=== PATIENT | female | born 1970 | race Caucasian/White ===

== ENCOUNTER 2019-09-23 07:50 | Outpatient (CLI) | payer OTHER, SELFPAY ==
--- NOTE | ~2019-09-23 | US_ITS ---
EXAMINATION: US right upper quadrant EXAM DATE: 09/23/2019 08:38 INDICATION: Abdominal pain. TECHNIQUE: Multiple grayscale and Doppler images of the abdomen right upper quadrant were obtained (jose alfredo y a technologist who performed the scan) and subsequently reviewed. There is no prior study for yduy ornelas. FINDINGS: The pancreatic head and body are normal in appearance. The pancreatic tail is not visualized. The l iver has normal echogenicity and contour. There are no focal liver lesions identified. There is no evidence of intrahepatic biliary duct dilation. Portal venous flow was seen in the hepatopedal, nor mal direction and has normal Doppler waveform. No right-sided hydronephrosis. Common bile duct measures 3 mm, which is normal. The gallbladder wall is normal in thickness, with ex pected amount of distention. No sonographic evidence of pericholecystic fluid. There is no cholelit hiases. Technologist performing exam reports patient did not demonstrate sonographic Ortiz's sign. Please note that this sign is less reliable in patients who have received pain medication. IMPRESSION: 1. Unremarkable abdominal ultrasound exam. Reviewed, dictated and finalized at location A. T END DEVELOPER DESIGNER
== END 2019-09-23 07:51 | disposition home or self-care (01) ==
PROVIDERS: PCP Internal Medicine; Visit Provider Internal Medicine
DX: R10.9 Unspecified abdominal pain (principal)
CPT/HCPCS: 76705

== ENCOUNTER 2019-09-30 07:59 | Outpatient (CLI) | payer OTHER, SELFPAY ==
--- NOTE | ~2019-09-30 | NM_ITS ---
EXAMINATION: NM hepatobiliary w pharm EXAM DATE: 09/30/2019 10:37 INDICATION: Right upper quadrant pain. TECHNIQUE: 5 mCi Tc-99m mebrofenin (Choletec) was administered intravenously. Scintigraphic images o f the abdomen were obtained for one hour. At the 1 hour time point, 1.4 mcg sincalide (Kinevac) was a dministered by slow intravenous infusion, and imaging was continued for 30 minutes. Gallbladder eject ion fraction was calculated by the technologist. There is no prior study for comparison. FINDINGS: There is normal clearance of radiotracer from the blood pool. There is homogeneous tracer u ptake by the liver. Activity progresses to the gallbladder and bowel. The gallbladder ejection fract ion (GBEF) is 50 % (most patients with gallbladder dysfunction have GBEF < 35%, but there is overlap with the normal range of 10-90%). IMPRESSION: Gallbladder ejection fraction 50%, within normal range. Reviewed, dictated and finalized at location B. COVERER
== END 2019-09-30 08:00 | disposition home or self-care (01) ==
PROVIDERS: PCP Internal Medicine; Visit Provider Internal Medicine
DX: R10.11 Right upper quadrant pain (principal)
CPT/HCPCS: 78227; A9537; J2805

== ENCOUNTER → 2020-05-12 13:36 | Outpatient (CLI) | payer OTHER, SELFPAY ==
--- NOTE | ~2020-05-12 | MM_ITS ---
EXAMINATION: MM screening [facility] BI w maria luz HISTORY: Screening mammogram TECHNIQUE: Craniocaudal and mediolateral oblique 3-D tomosynthesis images were obtained and synthetic 2-D images were generated. CAD analysis was submitted and interpreted. COMPARISON: 11/05/2018, 09/06/2017, 02/28/2016 bilateral digital screening mammogram examinations BREAST PARENCHYMAL COMPOSITION: There are scattered areas of fibroglandular density. FINDINGS: There is no evidence of suspicious mass, calcification, or architectural distortion to sugg est malignancy in either breast. There has been no suspicious interval change. IMPRESSION: 1. No mammographic evidence of malignancy. 2. Recommend routine screening mammography in one year. BI-RADS Category 1: Negative Reviewed, dictated and finalized at location A.
== END ==
DX: Z12.31 Encounter for screening mammogram for malignant neoplasm of breast (principal)
CPT/HCPCS: 77063; 77067

== ENCOUNTER 2021-03-31 10:38 | Emergency (ER) | payer OTHER, SELFPAY ==
[2021-03-31 11:03] VITALS: BP 128/67; PULSE 74; RESP 20; TEMP 37.7; O2SAT 98
--- NOTE | 2021-03-31 11:47 | ED.URI ---
HPI - URI/Sore Throat General Chief Complaint: Upper Respiratory Infection Stated Complaint: covid symptoms Time Seen by Provider: 03/31/21 11:11 Source: patient and RN notes reviewed Mode of arrival: ambulatory Limitations: no limitations History of Present Illness HPI Narrative: Patient presents today complaining of headache, sore throat, fatigue, chills and sweats x5 days. She found out this morning that her coworker was diagnosed with COVID-19. Patient has had the vaccine. Denies any nausea or vomiting, fever. She has tried no medication for symptoms prior to arrival. She also reports some dysuria at the end of her urine stream as well as some urgency for the past several days. She had a urine test done several days ago with a urine culture that showed GBS and was not subsequently treated as she is not . Patient is requesting another urine test. MD elicited complaint: sore throat Related Data Home Medications Medication Instructions Recorded Confirmed sertraline 100 mg PO DAILY 06/24/19 03/31/21 linaclotide [Linzess] 145 mcg PO DAILY 03/31/21 03/31/21 lorazepam 0.5 mg PO DAILY PRN 03/31/21 03/31/21 pravastatin 10 mg PO DAILY 03/31/21 03/31/21 Allergies Allergy/AdvReac Type Severity Reaction Status Date / Time erythromycin base AdvReac Intermediate Nausea Verified 03/31/21 10:47 Review of Systems Review of Systems: CONSTITUTIONAL: Denies body aches, fever. + Fatigue EYES: Denies visual changes, redness, or discharge. ENT: Denies rhinorrhea, congestion, or otalgia.+ Sore throat CARDIOVASCULAR: Denies chest pain, palpitations, or edema. RESPIRATORY: Denies cough or dyspnea. GASTROINTESTINAL: Denies abdominal pain, nausea, vomiting, or diarrhea. GENITOURINARY: Denies hematuria.+ Dysuria, urgency SKIN: Denies rash, itching, or wounds. MUSCULOSKELETAL: Denies back pain, joint pain, or myalgia. NEUROLOGIC: Denies numbness, tingling, or weakness.+ Headache PSYCH: Denies depression or anxiety. [facility] Past Medical History Medical History Anxiety Hyperlipidemia Social History Social History Smoking status: Never smoker Substance use: current Comments At time of signature, I have reviewed and agree with nursing past medical, surgical, social and family history unless otherwise noted. Please see nursing chart for further information. There is no relevant family history pertinent to the presenting complaint Exam Narrative: GENERAL: Well-appearing, well-nourished, and in no acute distress. HEAD: Normocephalic, atraumatic. EYES: EOMI. No redness or drainage. Conjunctivae normal. ENT: Mucous membranes pink and moist. Nares clear. No rhinorrhea. TMs normal bilaterally. Throat normal. Uvula midline. NECK: Normal AROM. Supple. No lymphadenopathy. CHEST: No respiratory distress. Clear to auscultation. HEART: Regular rate and rhythm. No murmur appreciated. Normal peripheral pulses. ABDOMEN: Soft, nontender, nondistended, normal active bowel sounds. MUSCULOSKELETAL: No bony tenderness. EXTREMITIES: Normal range of motion. No edema. SKIN: Warm, dry, no rash. Capillary refill normal. Normal skin turgor. NEURO: No focal deficits. Alert and oriented x3. Gait steady. PSYCH: Normal affect. No signs of depression or anxiety. Course Vital Signs Vital signs: Vital Signs Temperature 99.9 F H 03/31/21 11:03 Pulse Rate 74 03/31/21 11:03 Respiratory Rate 20 03/31/21 11:03 Blood Pressure 128/67 03/31/21 11:03 Pulse Oximetry 98 03/31/21 11:03 Temperature 99.9 F H 03/31/21 11:03 Pulse Rate 74 03/31/21 11:03 Respiratory Rate 20 03/31/21 11:03 Blood Pressure 128/67 03/31/21 11:03 Pulse Oximetry 98 03/31/21 11:03 Reviewed. Pt has been instructed to follow up with her PCP regarding her elevated blood pressure today. MDM - URI/Sore Throat Lab Data Attes
[2021-04-01 17:53] LABS: SARS-CoV-2 RNA PCR Negative
== END 2021-03-31 12:06 | disposition home or self-care (01) ==
PROVIDERS: Emergency Provider Nurse Practitioner
DX: J06.9 Acute upper respiratory infection, unspecified (principal); N30.01 Acute cystitis with hematuria; F41.9 Anxiety disorder, unspecified; E78.5 Hyperlipidemia, unspecified
CPT/HCPCS: 81003; 87077; 87081; 87086; 87088; 87426; 87880; 99213; C9803; G0463; U0003; U0005

== ENCOUNTER → 2022-01-24 12:13 | Outpatient (CLI) | payer OTHER, SELFPAY ==
--- NOTE | ~2022-01-24 | MM_ITS ---
EXAMINATION: MM screening [facility] BI w maria luz HISTORY: Screening mammogram TECHNIQUE: Craniocaudal and mediolateral oblique 3-D tomosynthesis images were obtained and synthetic 2-D images were generated. CAD analysis was submitted and interpreted. COMPARISON: 05/12/2020, 11/05/2018, 08/27/2017 BREAST PARENCHYMAL COMPOSITION: There are scattered areas of fibroglandular density. FINDINGS: There is no suspicious mass, calcification, or architectural distortion to suggest malignan cy in either breast. There has been no suspicious interval change. IMPRESSION: 1. No mammographic evidence of malignancy. 2. Recommend routine screening mammography in one year. BI-RADS Category 1: Negative Reviewed, dictated and finalized at location A.
== END ==
DX: Z12.31 Encounter for screening mammogram for malignant neoplasm of breast (principal)
CPT/HCPCS: 77063; 77067

== ENCOUNTER → 2022-06-01 13:52 | Outpatient (CLI) | payer OTHER, SELFPAY ==
--- NOTE | ~2022-06-01 | US_ITS ---
EXAMINATION: US pelvic complete w TV DATE: 06/01/2022 14:23 INDICATION: Ovarian cyst. TECHNIQUE: Multiple transabdominal and transvaginal sonographic images of the pelvis were obtained. COMPARISON: CT abdomen and pelvis 02/03/07 FINDINGS: TRANSABDOMINAL ULTRASOUND: The uterus measures 7.3 x 3.6 x 3.8 cm. There is no free fluid in the pelvis. TRANSVAGINAL ULTRASOUND: The endometrial complex measures 3 mm in thickness. There is a 9 mm intramural fibroid. The right ova ry measures 1.6 x 1.4 x 1.4 cm. The left ovary measures 2.7 x 1.5 x 2.1 cm. There is a 2.4 cm cyst in left ovary with peripheral hypoechoic material. There is normal vascular flow in the ovaries. IMPRESSION: 1. 2.4 cm cystic mass in left ovary, most likely a hemorrhagic cyst or endometrioma. Follow-up pelvis ultrasound is recommended in 6-12 weeks. 2. Small intramural fibroid. Reviewed, dictated and finalized at location A. IMPRESSION: 1. 2.4 cm cystic mass in left ovary, most likely a hemorrhagic cyst or endometr ioma. Follow-up pelvis ultrasound is recommended in 6-12 weeks. 2. Small intramural fibroid.
== END ==
DX: N95.9 Unspecified menopausal and perimenopausal disorder (principal); N83.202 Unspecified ovarian cyst, left side; D25.1 Intramural leiomyoma of uterus
CPT/HCPCS: 76830; 76856

== ENCOUNTER → 2022-07-27 12:32 | Outpatient (CLI) | payer OTHER, SELFPAY ==
--- NOTE | ~2022-07-27 | DEXA_ITS ---
Bone Density Report Name: GUS SHARMA Age: 51 Sex: Female Ethnicity: White Date of : 1970 Indication: postmenopausal; screening for osteoporosis; Referring Provider: BETTY, ROB Stringer Study: Bone densitometry was performed. Exam Date: July 27, 2022 Accession number: [id number] Bone Density: Region BMD T-score Z-score Classification AP Spine (L1-L4) 1.176 1.2 2.0 Normal Femoral Neck (Left) 0.814 -0.3 0.5 Normal Total Hip (Left) 0.948 0.1 0.6 Normal Femoral Neck (Right) 0.848 0.0 0.9 Normal Total Hip (Right) 0.938 0.0 0.5 Normal Total Hip Mean 0.943 0.1 0.6 Normal World Health Organization criteria for BMD impression classify patients as: Normal (T-score at or above -1.0), Osteopenia (T-score between -1.0 and -2.5), or Osteoporosis (T-score at or below -2.5). 10-year Fracture Risk: FRAX not reported because: All T-scores for Spine Total, Hip Total, Femoral Neck at or above -1.0 Clinical Information Provided by Patient: Patient maximum height was 67 Menopause Age: 49 Drinks caffeinated beverages Onset of menses at age 13 Number of children 3 Impression: The patient has normal bone mass. Discussion: BONE DENSITY IS ABOVE THE MINIMUM DESIRABLE LEVEL AT ALL SKELETAL SITES TESTED. This patient?s bone mineral density is above the minimum desirable level (T-score -1.0 or better) at all sites measured. The patient should follow a healthful lifestyle (good nutrition with adequate calcium and vitamin D, and appropriate weight-bearing exercise). Follow-Up: Consider repeating this study in 5 years or sooner if there is some new clinical indication. Reported by: [facility] on 07/27/2022 12:57:00 PM. Reviewed, dictated and finalized at location [facility]
== END ==
PROVIDERS: Visit Provider Internal Medicine Endocrinology, Diabetes & Metabolism
DX: Z78.0 Asymptomatic menopausal state (principal)
CPT/HCPCS: 77080

== ENCOUNTER → 2023-10-11 08:18 | Outpatient (CLI) | payer OTHER, SELFPAY ==
--- NOTE | ~2023-10-11 | XR_ITS ---
XR abdomen/kub 1V 10/11/2023 08:34 Indication: Microscopic hematuria Procedure: KUB Comparison: 02/03/2007 Findings: There are bilateral pelvic calcifications which are most likely phleboliths, although dista l ureteral stone not excluded. Bowel pattern nonobstructive. No definite stones are identified overly ing the expected course of the kidneys. Lung bases unremarkable. No acute osseous abnormality. Impression: 1: Possible distal ureteral stone. Consider correlation with CT urogram as clinically warranted. Reviewed, dictated and finalized at location A. OMER ACCOUNT ADMINISTRATOR Impression: 1: Possible distal ureteral stone. Consider correlation with CT urogram as clin ically warranted.
--- NOTE | ~2023-10-11 | CT_ITS ---
CT of the Abdomen and Pelvis: Indication: Microscopic hematuria Technique: 2.5 mm axial scans were obtained through the abdomen and pelvis prior to and following in travenous administration of 130 cc of Omnipaque 350. Dose reduction technique was used on this scan b y utilizing automated exposure control and iterative reconstruction technique. The dose-length produc t (DLP) was 1122.42 mGy-cm. Findings: Scans through the lung bases are unremarkable. The liver, spleen, pancreas, gallbladder, adrenals and kidneys are within normal limits. No evidence of aortic aneurysm. No lymphadenopathy. No bowel obstruction or bowel wall thickening. There is no evidence to suggest acute appendicitis. Images through the pelvis were performed. Urinary bladder unremarkable. No adnexal mass seen. No asci lida. Impression: No significant abnormalities seen. Reviewed, dictated and finalized at [facility]. LING MACHINE OPERATOR Impression: No significant abnormalities seen.
== END ==
PROVIDERS: PCP Urology; Visit Provider Urology
DX: R31.29 Other microscopic hematuria (principal)
CPT/HCPCS: 74018; 74178; Q9967

== ENCOUNTER 2023-10-30 11:57 | Outpatient (CLI) | payer OTHER, SELFPAY ==
--- NOTE | ~2023-10-30 | US_ITS ---
EXAMINATION: US thyroid DATE: 10/30/2023 12:13 INDICATION: Tam's thyroiditis TECHNIQUE: Multiple ultrasound images of the thyroid were obtained. COMPARISON: None. FINDINGS: The right thyroid lobe measures 5.5 x 2.4 x 1.5 cm. The left thyroid lobe measures 4.6 x 2.2 x 1.8 c m. No discrete nodules identified. Diffuse heterogeneous echogenicity with coarsened echotexture and increased vascular flow on color Doppler throughout the thyroid consistent with provided history of Tam's thyroiditis. IMPRESSION: 1. Heterogeneous echogenicity, coarsened echotexture and increased vascular flow on color Doppler thr oughout the thyroid consistent with provided history of Tam's thyroiditis. Reviewed, dictated and finalized at location B. IMPRESSION: 1. Heterogeneous echogenicity, coarsened echotexture and increased vascular dominga w on color Doppler throughout the thyroid consistent with provided history of H ashimoto's thyroiditis.
== END 2023-10-30 11:58 ==
PROVIDERS: PCP Internal Medicine Endocrinology, Diabetes & Metabolism; Visit Provider Internal Medicine Endocrinology, Diabetes & Metabolism
DX: E06.3 Autoimmune thyroiditis (principal)
CPT/HCPCS: 76536

== ENCOUNTER 2025-05-21 08:25 | Outpatient (CLI) | payer OTHER, SELFPAY ==
--- NOTE | ~2025-05-21 | MM_ITS ---
EXAMINATION: MM screening [facility] BI w maria luz HISTORY: Screening TECHNIQUE: Craniocaudal and mediolateral oblique 3-D tomosynthesis images were obtained and synthetic 2-D images were generated. CAD analysis was submitted and interpreted. COMPARISON: Comparison to multiple prior studies sequentially, with oldest reviewed study dated 02/28/2016. BREAST PARENCHYMAL COMPOSITION: Not dense: There are scattered areas of fibroglandular density. FINDINGS: There is no evidence of suspicious mass, calcification, or architectural distortion to suggest malignancy in either breast. There has been no suspicious interval change. IMPRESSION: 1. No mammographic evidence of malignancy. 2. Recommend routine screening mammography in one year. BI-RADS Category 1: Negative Reviewed, dictated and finalized at location C.
== END 2025-05-21 08:26 | disposition home or self-care (01) ==
PROVIDERS: Visit Provider Internal Medicine Endocrinology, Diabetes & Metabolism
DX: Z12.31 Encounter for screening mammogram for malignant neoplasm of breast (principal)
CPT/HCPCS: 77063; 77067

== ENCOUNTER 2025-06-16 06:15 | Emergency (ER) | payer OTHER, SELFPAY ==
--- OUTSIDE RECORDS SUMMARY | 2025-06-16 06:19 | XMS_ITS | Encounter Summary ---
Author Organization [facility] Address [address] [place] [address] Phone Care Team Providers Care Neurosurgery Physician Name Role Phone Moncho George MD Unavailable [phone] Alida Childers MD Unavailable [phone] Moncho Henderson MD Unavailable [phone] Hamzah Scott MD Primary Care Provider Encounter Details Date Type Department Care Team (Latest Contact Info) Description 05/21/2025 Results Follow-Up [facility] Endocrinology Metabolism and Lipid [address] [facility] [address] [place] [address] [place] [address] Cheli Morrison RMA Screening Mammogram Right W Cole Unilateral Only Social History Tobacco Use Types Packs/Day Years Used Date Smoking Tobacco: Never Alcohol Use Standard Drinks/Week Comments Yes 0 (1 standard drink = 0.6 oz pur e alcohol) AUDIT-C Answer Date Recorded Q1: How often do you have a drink containing alc ohol? Never 01/22/2023 Average Number of Drinks Not on file 023 Frequency of Binge Drinking Not on file 01/2023 PHQ-2 Answer Date Recorded PHQ-2 Total Score (If total score is 3 or more points, staff should administer the PHQ-9) 0 02/04/2025 Exercise Vital Sign Answer Date Recorde d Days of Exercise per Week 6 days 2018 Minutes of Exercise per Session Not on file 02/12/2019 PHQ-9 Answer Date Recorded PHQ-9 Total Score 2 07/01/2024 Comments No Sex and Gender Information Value Date Recorded Sex Assigned at Not on file Legal Sex Female 7:09 PM LATHER APPRENTICE Gender Identity Female 06/25/2022 2:42 PM LATHER APPRENTICE Sexual Orientation Straight 06/25/2022 2: 42 PM LATHER APPRENTICE 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 Not on file Not on file documented as of this encounter Plan of Treatment Not on file documented as of this encounter Visit Diagnoses Not on filedocumented in this encounter Care Teams Neurosurgery Physician Relationship Specialty Start Date End Date Hamzah Scott MD [address] [place] [id number] PCP - General Internal Medicine 08/01/23 Moncho George MD [address] [address] Consulting Physician Obstetrics and Gynecology 06/25/22 Alida Childers MD [address] [address] Referring Physician Endocrinology Diabetes & Metabolism 06/25/22 Moncho Henderson MD [address] [place] [address] Referring Physician Cardiovascular Disease 06/25/22 documented as of this encounter
--- OUTSIDE RECORDS SUMMARY | 2025-06-16 06:19 | XMS_ITS | Encounter Summary ---
Author Organization [facility] Address [address] [place] [address] Care Team Providers Care Billposting Supervisor Name Role Phone Ara Milton MD Primary Care Provider Encounter Details Date Type Department Care Team (Latest Contact Info) Description 03/11/2000 Inpatient Historical HIS PATIENT IN A BED Tanmay, Joel Jarvis MD [address] [place] [address] Moncho George MD [address] [place] [address] Second-degree perineal laceration, with delivery (Primary Dx) Social History Tobacco Use Types Packs/Day Years Used Date Smoking Tobacco: Never Assessed Comments Unknown Sex and Gender Information Value Date Recorded Sex Assigned at Not on file Legal Sex Female 8:24 AM CDT Gender Identity Not on file Sexual Orientation Not on file documented as of this encounter Plan of Treatment Not on file documented as of this encounter Visit Diagnoses Diagnosis Second-degree perineal laceration, with delivery- Primary documented in this encounter Care Teams Billposting Supervisor Relationship Specialty Start Date End Date Ara Milton MD PCP - General Internal Medicine 03/03/20 documented as of this encounter
--- OUTSIDE RECORDS SUMMARY | 2025-06-16 06:19 | XMS_ITS | Encounter Summary ---
Author Organization [facility] Address [address] [place] [address] Phone Care Team Providers Care Bull Gang Worker Name Role Phone Ara Milton MD Primary Care Provider Moncho George MD Unavailable [phone] Alida Childers MD Unavailable [phone] Moncho Henderson MD Unavailable [phone] Hamzah Scott MD Primary Care Provider Encounter Details Date Type Department Care Team (Latest Contact Info) Description 07/27/2022 Orders Only [facility] Scanning, Provider Social History Tobacco Use Types Packs/Day Years Used Date Smoking Tobacco: Never Alcohol Use Standard Drinks/Week Comments Yes 0 (1 standard drink = 0.6 oz pur e alcohol) AUDIT-C Answer Date Recorded Q1: How often do you have a drink containing alc ohol? Monthly or less 01/16/2022 Q2: How many drinks containi ng alcohol do you have on a typical day when you are drinking? 1 or 2 01/16/2022 Q3: How often do you have si x or more drinks on one occasion? 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 Not on file Not on file documented as of this encounter Plan of Treatment Not on file documented as of this encounter Procedures Procedure Name Priority Date/Time Associated Diagnosis Comments SCAN - RADIOLOGY/IMAGING 07/27/2022 documented in this encounter Results * SCAN - RADIOLOGY/IMAGING (07/27/2022) Anatomical Region Laterality Modality Other us Provider Scanning Final Result documented in this encounter Visit Diagnoses Not on filedocumented in this encounter Additional Health Concerns Infection Onset Date Last Indicated Resolved Time COVID: Suspected 03/29/2025 03/29/2025 03/29/2025 6:14 PM CDT COVID: Suspected 03/29/2025 03/29/2025 03/29/2025 9:41 PM CDT documented as of this encounter Care Teams Bull Gang Worker Relationship Specialty Start Date End Date Ara Milton MD [address] [place] [address] PCP - General Internal Medicine 10/01/19 07/31/23 aHmzah Scott MD [address] [place] [address] PCP - General Internal Medicine 08/01/23 Moncho George MD [address] [address] Consulting Physician Obstetrics and Gynecology 06/25/22 Alida Childers MD [address] [address] Referring Physician Endocrinology Diabetes & Metabolism 06/25/22 Moncho Henderson MD [address] [place] [address] [address] [place], [place] [id number] Referring Physician Cardiovascular Disease 06/25/22 documented as of this encounter
--- OUTSIDE RECORDS SUMMARY | 2025-06-16 06:19 | XMS_ITS | Encounter Summary ---
Author Organization [facility] Address [address] [place] [address] Care Team Providers Care Beer Brewer Name Role Phone Ara Milton MD Primary Care Provider Encounter Details Date Type Department Care Team (Latest Contact Info) Description 07/01/1998 Inpatient Historical HIS PATIENT IN A BED Price Rader MD NO ADDRESS ON FILE Moncho George MD [address] [place] [address] Other and unspecified cord entanglement, without mention of compression, complicating labor and delivery, delivered (Primary Dx) Social History Tobacco Use Types [...] as of this encounter Visit Diagnoses Diagnosis Other and unspecified cord entanglement, without mention of compression, complicating labor and delivery, delivered- Primary documented in this encounter Care Teams Beer Brewer Relationship Specialty Start Date End Date Ara Milton MD PCP - General Internal Medicine 03/03/20 documented as of this encounter
--- OUTSIDE RECORDS SUMMARY | 2025-06-16 06:19 | XMS_ITS | Encounter Summary ---
Author Organization [facility] Address [address] [place] [address] Care Team Providers Care Set Up Mechanic Stamping Machines Name Role Phone Ara Milton MD Primary Care Provider Encounter Details Date Type Department Care Team (Latest Contact Info) Description 02/12/2000 Outpatient Historical HIS OBSERVATION BED Moncho George MD [address] [facility] [address] [place] [address] Threatened premature labor, antepartum(644.03) (Primary Dx) Social History Tobacco Use Types [...] as of this encounter Visit Diagnoses Diagnosis Threatened premature labor, antepartum(644.03)- Primary Threatened premature labor, antepartum documented in this encounter Care Teams Set Up Mechanic Stamping Machines Relationship Specialty Start Date End Date Ara Milton MD PCP - General Internal Medicine 03/03/20 documented as of this encounter
--- OUTSIDE RECORDS SUMMARY | 2025-06-16 06:19 | XMS_ITS | Clinical Summary ---
Author Organization [facility] Address [address] [place] [address] Phone Care Team Providers Care Neon Sign Mechanic Name Role Phone Ara Milton MD Primary Care Provider Allergies Active Allergy Reactions Criticality Noted Date Comments Erythromycin Nausea and Vomiting Low 12/01/2016 Medications coenzyme Q10 200 mg Capsule Take by mouth. 9 Active magnesium citrate and oxide (magnesium citrate,mag oxide) 250 mg Capsule Active rosuvastatin (CRESTOR) 10 mg tablet Take 10 mg by mouth daily. Active sertraline (ZOLOFT) 100 mg tablet 150 mg. 1 Active triamcinolone acetonide (KENALOG) 0.1 % Ointment Apply to affected area 2 times daily. 30 Gram 2 4 Active Additional Information Patient not taking.Reported on 11/05/2024 nitrofurantoin (MACROBID) 100 mg capsule Take 1 Capsule (100 mg) by mouth 2 times daily. For 7 days 14 Capsule 4 Active Additional Information Patient not taking.Reported on 11/05/2024 MULTIVITAMIN 12 IV 0 5 Active carvediloL (COREG) 6.25 mg tablet 6.25 mg. 5 08/30/19 26 Active estradioL (Vivelle-Dot) 0.05 mg/24 hr patch Apply 1 Patch to skin as directed twice weekly. 24 Patch 2 5 Active progesterone micronized (Prometrium) 100 mg Capsule Take 1 Capsule (100 mg) by mouth daily. 90 Capsule 2 5 Active Active Problems No known active problems Encounters Date Type Department Care Team Description 03/23/2025 External Device Data STL ABSTRACTION Provider, Abstract from Last 3 Months Immunizations Immunization Administration Dates Next Due INFLUENZA VACCINE TRIVALENT SPLIT VIRUS, (6 MOS UP), 0.5ML (PF), IM 06/19/2024 Family History Medical History Relation Name Comments Cancer Father Relation Name Status Comments Father Social History Tobacco Use Types Packs/Day Years Used Date Smoking Tobacco: Never Smokeless Tobacco: Never Tobacco Cessation:Counseling Given: Not Answered Alcohol Use Standard Drinks/Week Comments Not Currently 0 (1 standard drink = 0.6 oz pur e alcohol) Comments No Sex and Gender Information Value Date Recorded Sex Assigned at Not on file Legal Sex Female 8:24 AM CDT Gender Identity Not on file Sexual Orientation Not on file Last Filed Vital Signs Vital Sign Reading Time Taken Comments Blood Pressure 124/80 11/05/2024 10:27 AM CDT Pulse - - Temperature - - Respiratory Rate - - Oxygen Saturation - - Inhaled Oxygen Concentration - - Weight 69.1 kg (152 lb 6.4 oz) 11/05/2024 10:27 AM CDT Height 170.2 cm (5' 7) 11/05/2024 10:27 AM CDT Body Mass Index 23.87 11/05/2024 10:27 AM CDT Plan of Treatment Health Maintenance Due Date Last Done Comments HEPATITIS B VACCINES (1 of 3 - 19+ 3-dose series) 1989 COLORECTAL SCREENING 2015 Colorectal Cancer Screening 2015 FIT-DNA Q 3 years 2015 FIT/FOBT Q 1 year 2015 Flex Sig/CT Colonography Q 5 years 2015 ZOSTER VACCINE (1 of 2) 2020 BREAST CANCER SCREENING 05/12/2021 05/12/2020 DTAP/TDAP/TD VACCINES (1 - Tdap) 01/20/2022 01/20/20 22 INFLUENZA VACCINE (#1) 2025 4, 06/11/2023, 06/13/2022, Additional history exists PAP SMEAR 11/06/2027 11/05/2024, 04/20, 12/07/2021, Additional history exists CERVICAL CANCER SCREENING 11/05/2029 HPV/Cotest (21-29) 11/05/2029 11/05/2024, 0 05/16/2023, 12/07/2021, Additional history exists HPV/Cotest (30-65) 11/05/2029 11/05/2024, 0 05/16/2023, 12/07/2021, Additional history exists Procedures Procedure Name Priority Date/Time Associated Diagnosis Comments CERV/VAG CYTO AGE BASED SCREEN PAP Routine 11/05/2024 12:00 AM CDT Encounter for gynecological examination without abnormal finding MAMMO 3D [place] SCREEN BILAT W OR WO CAD Routine 05/12/2020 Screening for breast cancer from Last 3 Months or Most Recently Relevant to Health Maintenance Results * CERV/VAG CYTO AGE BASED SCREEN PAP (11/05/2024 12:00 AM CDT) COMMENT (PAP): [facility] [place] Comment: This order for age-based cervical cancer and STI screening follows ACOG guidelines(PB 168, 140, [id number]). See individual assays for performing site location. CLINICAL INFORMATION [facility] [place] Comment:None given LAST MENSTRUAL PERIOD [facility] [place] Comment:NONE GIVEN PREV PAP: [facility] [place] Comment:NONE GIVEN PREV BX: [facility] [place] Comment:NONE GIVEN SOURCE [facility] [place] Comment:Endocervix ADEQUACY: [facility] [place] Comment: Satisfactory for evaluation. Endocervical/transformation zone component present. Age and/or menstrual status not provided PAP INTERP [facility] [place] Comment: Cytology Results: Negative for intraepithelial lesion or malignancy. COMMENT (PAP TEST) [facility] [place] Comment: This Pap test has been evaluated with computer assisted technology. REMEDIATION PROJECT ENGINEER: [facility] [place] Comment: TLS, CT(ASCP) CT Screening Location: [place] [id number] EXPLANATORY NOTE [facility] [place] Comment: EXPLANATORY NOTE: The Pap is a screening test for cervical cancer. It is not a diagnostic test and is subject to false negative and false positive results. It is most reliable when a satisfactory sample, regularly obtained, is submitted with relevant clinical findings and history, and when the Pap result is evaluated along with historic and current clinical information. HPV E6/E7 Not Detected Not Detected [facility] [place] Comment: Methodology: Cement Mason Maintenance-Mediated Amplification This assay detects E6/E7 viral messenger RNA (mRNA) from 14 high-risk HPV types (16,18,31,33,35,39,45,51,52,56,58,59,66,68). Cervical sources are required for HPV testing. If a vaginal source from a patient who has had a total hysterectomy with removal of cervix was submitted, please contact the testing laboratory for alternative testing options. For additional information, please refer to http://education.for; to (do)/faq/LFB715u1 (This link if provided for information/ educational purposes only.) Test Performed at: [facility] [address] [place] [address] Aidan Hudson MD SL Genital SWAB OF ENDOCERVIX / Unknown 11/05/2024 11/05/2024 11:41 PM CDT Moncho George MD PATHOLOGY/CYTOLOGY ORDERABLES Fi nal Result [facility] [phone] [facility] [address] * MAMMO SCRN BILAT 3D CAM[place] W OR WO CAD (05/12/2020) Anatomical Region Laterality Modality Breast Bilateral Mammography Moncho George MD MAMMO ORDERABLES Final Result from Last 3 Months or Most Recently Relevant to Health Maintenance Insurance [employer] CHOICE POS II Care Teams Neon Sign Mechanic Relationship Specialty Start Date End Date Ara Milton MD PCP - General Internal Medicine 03/03/20
--- OUTSIDE RECORDS SUMMARY | 2025-06-16 06:19 | XMS_ITS | Encounter Summary ---
Author Organization [facility] Address [address] [place] [address] Phone Care Team Providers Care Oxygen Equipment Technician Name Role Phone Ara Milton MD Primary Care Provider Moncho George MD Unavailable Alida Childers MD Unavailable [phone] Moncho Henderson MD Unavailable [phone] Hamzah Scott MD Primary Care Provider Encounter Details Date Type Department Care Team (Late st Contact Info) Description 08/24/2021 Orders Only [facility] [address] [place] [address] Scanning, Provider Social History Tobacco Use Types Packs/Day Years Used Date Smoking Tobacco: Never Alcohol Use Standard Drinks/Week Comments Yes 0 (1 standard drink = 0.6 oz pur e alcohol) AUDIT-C Answer Date Recorded Q1: How often do you have a drink containing alc ohol? Monthly or less 10/13/2019 Q2: How many drinks containi ng alcohol do you have on a typical day when you are drinking? 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 Not on file Not on file documented as of this encounter Plan of Treatment Not on file documented as of this encounter Procedures Procedure Name Priority Date/Time Associated Diagnosis Comments SCAN - RADIOLOGY/IMAGING 08/24/2021 4:11 PM FORMULA MAKER documented in this encounter Results * SCAN - RADIOLOGY/IMAGING (08/24/2021 4:11 PM FORMULA MAKER) Anatomical Region Laterality Modality Other us Provider Scanning Final Result documented in this encounter Visit Diagnoses Not on filedocumented in this encounter Additional Health Concerns Infection Onset Date Last Indicated Resolved Time COVID: Suspected 08/28/2021 08/28/2021 08/29/2021 2:46 AM FORMULA MAKER COVID: Suspected 03/29/2025 03/29/2025 03/29/2025 6:14 PM CDT COVID: Suspected 03/29/2025 03/29/2025 03/29/2025 9:41 PM CDT documented as of this encounter Care Teams Oxygen Equipment Technician Relationship Specialty Start Date End Date Ara Milton MD [address] [place] [address] PCP - General Internal Medicine 10/01/19 07/31/23 Hamzah Scott MD [address] [facility] [address] [facility] [address] [place] [address] PCP - General Internal Medicine 08/01/23 Moncho George MD [address] [facility] [address] [place] [address] Consulting Physician Obstetrics and Gynecology 06/25/22 Alida Childers MD [address] [facility] [address] [place] [phone] Referring Physician Endocrinology Diabetes & Metabolism 06/25/22 Moncho Henderson MD [address] [facility] [address] [place] [address] Referring Physician Cardiovascular Disease 06/25/22 documented as of this encounter
--- OUTSIDE RECORDS SUMMARY | 2025-06-16 06:19 | XMS_ITS | Encounter Summary ---
Author Organization [facility] Address [address] [place] [address] Phone Care Team Providers Care Sugar Coating Hand Name Role Phone Ara Milton MD Primary Care Provider Moncho George MD Unavailable [phone] Alida Childers MD Unavailable [phone] Moncho Henderson MD Unavailable [phone] Hamzah Scott MD Primary Care Provider Encounter Details Date Type Department Care Team (Late st Contact Info) Description 01/09/[address] 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 Not on file Not on file documented as of this encounter Plan of Treatment Not on file documented as of this encounter Visit Diagnoses Not on filedocumented in this encounter Additional Health Concerns Infection Onset Date Last Indicated Resolved Time COVID: Suspected 08/28/2021 08/28/2021 08/29/2021 2:46 AM RETICLE PRINTER COVID: Suspected 03/29/2025 03/29/2025 03/29/2025 6:14 PM CDT COVID: Suspected 03/29/2025 03/29/2025 03/29/2025 9:41 PM CDT documented as of this encounter Care Teams Sugar Coating Hand Relationship Specialty Start Date End Date Ara Milton MD [address] [place] [address] PCP - General Internal Medicine 10/01/19 07/31/23 Hamzah Scott MD [address] [place] [address] PCP - General Internal Medicine 08/01/23 Moncho George MD [address] [address] Consulting Physician Obstetrics and Gynecology 06/25/22 Alida Childers MD [address] [address] Referring Physician Endocrinology Diabetes & Metabolism 06/25/22 Moncho Henderson MD [address] [facility] [address] [place] [address] Referring Physician Cardiovascular Disease 06/25/22 documented as of this encounter
--- OUTSIDE RECORDS SUMMARY | 2025-06-16 06:19 | XMS_ITS | Clinical Summary ---
Author Organization [facility] Address [address] [place] [address] Care Team Providers Care Spice Miller Name Role Phone Moncho George MD Unavailable [phone] Alida Childers MD Unavailable [phone] Moncho Henderson MD Unavailable [phone] Hamzah Scott MD Primary Care Provider Allergies Active Allergy Reactions Criticality Noted Date Comments Erythromycin Nausea & Vomiting Low 12/01/2016 Medications coenzyme Q10 200 mg capsule Take 1 capsule (200 mg total) by mouth daily 9 Active rosuvastatin (CRESTOR) 10 mg tablet Take 1 tablet (10 mg total) by mouth daily Active sertraline (ZOLOFT) 100 mg tabletIndications :YANE (generalized anxiety disorder) Take 2 tablets (200 mg total) by mouth daily 4 Active multivit with min-folic acid (Adult Multivitamin Gummies) 120 mcg tablet,chewable 0 5 Active losartan potassium (LOSARTAN ORAL) Take 12.5 mg by mouth daily 5 Active progesterone (PROMETRIUM) 100 mg capsule Take 1 capsule (100 mg total) by mouth daily 5 Active estradioL (VIVELLE-DOT) 0.05 mg/[address] 1 patch on the skin 2 (two) times a week 5 Active Lactobacillus no.46-B.animalis (Probiotic-10) 20 billion cell capsule 5 Active metoprolol tartrate (LOPRESSOR) 25 mg immediate release tablet TAKE 1 TABLET BY MOUTH DAILY NEEDED. MAX DAILY DOSE 2 TABLETS PER 24 HOURS. Active tirzepatide, weight loss, (Zepbound) 2.5 mg/0.5 mL pen injectorIndicatio ns:Weight gain Inject 0.5 mL (2.5 mg total) under the skin every 7 days 2 mL 3 Active Active Problems Problem Noted Date Diagnosed Date Rash and nonspecific skin eruption 07/01/2024 Assessment & Plan (07/01/2024 4:03 PM GRADUATE FELLOW): suspect change in weather/ stress / environment all causing the itching/ burning sensation on the skin will currently treat like eczema with hydration/ topical cream and if not better patient will let us know in a few weeks or if she has any other significant changes or questions Elevated blood pressure read ing without diagnosis of hypertension 06/25/2023 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 She also understands that estrogen therapy could affect her thyroid metabolism Assessment & Plan (05/18/2024 7:14 PM CDT): Clinically doing well. TSH borderline high but will recheck in about 6 months. Assessment & Plan (11/13/2023 8:37 PM CDT): With mild hypothyroidism; clinically stable at this time Assessment & Plan (06/25/2023 1:43 PM GRADUATE FELLOW): With mild hypothyroidism; increasing estrogen and progesterone supplements so would benefit from starting low-dose levothyroxine Weight gain 06/25/2022 Assessment & Plan (05/13/2025 7:00 PM CDT): Difficulty with management, despite diet and lifestyle. Postmenopausal 06/25/2022 Overview (06/25/2023): Images from the original note were not included. DEXA 07/27/22: Assessment & Plan (06/27/2023 8:13 PM GRADUATE FELLOW): Being managed by her other doctors. HRT supplementation likely to affect thyroid metabolism Assessment & Plan (01/22/2023 9:02 PM CDT): We discussed r/b/a of HRT for menopausal sx. She will discuss further with her grinder hand Assessment & Plan (06/27/2022 12:58 PM GRADUATE FELLOW): Not on estrogen therapy. Needs DEXA bone density Restless leg syndrome 01/17/2022 Assessment & Plan (01/22/2023 9:01 PM CDT): Counseled regarding need to stay active. Consider gabapentin if no iron deficiency Gastroesophageal reflux disease without esophagi tis 01/09/2021 Assessment & Plan (01/22/2023 9:00 PM CDT): Now much improved Assessment & Plan (01/17/2022 9:43 PM CDT): Cont omeprazole 10mg every day Assessment & Plan (01/09/2021 10:13 PM CDT): suboptimal control. - Counseled regarding appropriate dosing of omeprazole 20mg every day on empty stomach prior to first meal of the day. - Counseled regarding diet and lifestyle changes to improve GERD Routine general medical exam ination at a health care facility 10/13/2020 Assessment & Plan (01/22/2023 9:16 AM CDT): - - Depression screen: PHQ Screening PHQ-2 Total Score (If total score is 3 or more points, staff should administer the PHQ-9): 0 PHQ-9 Total Score: 4 - A1c: screen today - Lipids: see HLD - DEXA: refer at 65 yo - Colon cancer: hx of polyps, 03/2022 cscope normal, due 2028 - Mammogram 12/2022 normal goes to [facility] - Pap: 02/2020 neg for RAQUEL and HPV. Hx of pos HPV. Sees Dr. George. - Lung cancer: not needed - Hepatitis C: NR - HIV: checked prev and NR - Influenza: rec - Td/Tdap: 01/2022 - Shingrix: Recommended - Pneumovax due at 65 - Prevnar: due at 65 - COVID: UTD bivalent Routine health maintenance objectives discussed, including healthy diet, physical activity, and adequate calcium and vitamin D intake. Orders placed for any outstanding screening studies as noted. Physical exam performed as above.Routine annual labs, if needed, have been ordered and will be reviewed with patient when results available. Assessment & Plan (01/16/2022 3:09 PM CDT): - - Depression screen: PHQ Screening PHQ-2 Total Score (If total score is 3 or more points, staff should administer the PHQ-9): 0 PHQ-9 Total Score: 1 - A1c: normal - Lipids: see HLD - DEXA: refer at 65 yo - Colon cancer: hx of polyps, due 2022 - Mammogram 12/2021 normal goes to [facility] - Pap: 02/2020 neg for RAQUEL and HPV. Hx of pos HPV. Sees Dr. George. - Lung cancer: not needed - Hepatitis C: NR - HIV: checked prev and NR - Influenza: rec - Td/Tdap: give today - Shingrix: Recommended - Pneumovax due at 65 - Prevnar: due at 65 - Other COVID 3 done, rec booster. Routine health maintenance objectives discussed, including healthy diet, physical activity, and adequate calcium and vitamin D intake. Orders placed for any outstanding screening studies as noted. Physical exam performed as above.Routine annual labs, if needed, have been ordered and will be reviewed with patient when results available. Assessment & Plan (10/13/2020 11:03 AM GRADUATE FELLOW): - - Depression screen: PHQ Screening PHQ-2 Total Score (If total score is 3 or more points, staff should administer the PHQ-9): 2 PHQ-9 Total Score: 7 - A1c: normal - Lipids: see HLD - DEXA: refer at 65 yo - Colon cancer: hx of polyps, due 2022 - Mammogram 03/2020 and normal goes to [facility] - Pap: 02/2020 neg for RAQUEL and HPV. Hx of pos HPV. Sees Dr. George. - Lung cancer: not needed - Hepatitis C: screen today - HIV: checked prev and NR - Influenza: UTD 05/2020 - Td/Tdap: unsure - Shingrix: Recommended - Pneumovax due at 65 - Prevnar: due at 65 - Other COVID 1/2 done Routine health maintenance objectives discussed, including healthy diet, physical activity, and adequate calcium and vitamin D intake. Orders placed for any outstanding screening studies as noted. Physical exam performed as above.Routine annual labs, if needed, have been ordered and will be reviewed with patient when results available. YANE (generalized anxiety disorder) 10/13/2020 Assessment & Plan (01/22/2023 9:00 PM CDT): F/b Dr. Patiño in psychiatry. - Cont sertraline 150mg every day - lorazepam 0.5mg bid prn - cont therapy, regular physical activity Assessment & Plan (01/17/2022 9:44 PM CDT): F/b Dr. Patiño in psychiatry. - Cont sertraline 150mg every day - lorazepam 0.5mg bid prn - cont therapy, regular physical activity Assessment & Plan (10/13/2020 9:07 PM GRADUATE FELLOW): F/b Dr. Patiño in psychiatry. - Cont sertraline 150mg every day - lorazepam 0.5mg bid prn - cont therapy, regular physical activity Polyp of colon 10/13/2019 Assessment & Plan (10/13/2020 9:06 PM GRADUATE FELLOW): Hx of adenomas, last cscope in 2016 with only diverticulosis so due for f/u in 2021 Assessment & Plan (10/13/2019 4:58 PM GRADUATE FELLOW): Noted on cscope [id number], unclear type. - Requested records. Hyperlipidemia, unspecified 02/20/2019 Assessment & Plan (05/13/2025 6:56 PM CDT): Being managed by her slicing machine tender, on rosuvastatin. Assessment & Plan (05/18/2024 7:14 PM CDT): Being managed by her slicing machine tender, on rosuvastatin. Assessment & Plan (11/13/2023 8:37 PM CDT): Being managed by her slicing machine tender, on rosuvastatin. Assessment & Plan (06/27/2023 8:12 PM GRADUATE FELLOW): Being managed by her slicing machine tender,.on rosuvastatin. Assessment & Plan (01/22/2023 9:00 PM CDT): Lab Results Component Value Date CHOL 171 07/10/2021 CHOL 265 (H) 10/07/2020 CHOL 236 (H) 01/22/2020 Lab Results Component Value Date HDL 72 01/22/2023 HDL 73 07/10/2021 HDL 70 10/07/2020 Lab Results Component Value Date LDLCALC 66 01/22/2023 LDLCALC 78 07/10/2021 LDLCALC 181 (H) 10/07/2020 Lab Results Component Value Date TRIG 67 01/22/2023 TRIG 114 07/10/2021 TRIG 82 10/07/2020 - Cont rosuvastatin 10mg every day Assessment & Plan (06/27/2022 12:58 PM GRADUATE FELLOW): Being managed by her slicing machine tender, and she is open to the idea of possibly increasing her dose of rosuvastatin. She will discuss with the Lawnmower Mechanic Assessment & Plan (01/17/2022 9:44 PM CDT): Cont rosuvastatin 10mg every day Assessment & Plan (10/13/2020 9:04 PM GRADUATE FELLOW): Most recent LDL 184, which has increased . Her ASCVD is low, however she is particularly concerned given her father's hx of cardiovascular disease starting at 50yo. She has already implemented lifestyle interventions, but LDL is worsening despite this. - After discussion of benefits, SE, she will consider starting pravastatin 10mg qd - Counseled regarding diet to lower cholesterol. Assessment & Plan (07/18/2020 10:50 PM GRADUATE FELLOW): LDL 164. Her ASCVD is low enough that she does not need to start a statin, however if she would like to start red yeast rice or lovastatin due to her family history I am ok with this. - Counseled regarding diet to lower cholesterol. Assessment & Plan (07/12/2020 10:38 AM GRADUATE FELLOW): She is currently working hard with diet and lifestyle. She may benefit from low- dose Red yeast rice (statin). Assessment & Plan (01/29/2020 10:12 AM CDT): 01/2019 Tchol 237, LDL 149, HDL 67, TG 101. ASCVD <1%. - Repeat lipid panel - Counseled regarding diet for low cholesterol. - Discussed guidelines for statin initiation. We will reassess CV risk and need for statin qyear. Assessment & Plan (10/13/2019 4:58 PM GRADUATE FELLOW): 04/2019 Tchol 237, LDL 149, HDL 67, TG 101. ASCVD <1%. - Counseled regarding diet for low cholesterol. - Discussed guidelines for statin initiation. We will reassess CV risk and need for statin qyear. Assessment & Plan (02/12/2019 7:04 AM CDT): She follows a good diet and lifestyle, now on CholestOff and may want to add more natural products such as red rice yeast. If starting statin, would consider pravastatin due to having no effects on glycemic control. Given her family history and borderline glucose, it would be prudent to check her HA1c. Also now needs a f/u lipid panel with CholestOff supplementation. Family history of heart disease 02/20/2019 Overview (07/12/2020): dad has stents Adenomatous polyp of colon 02/20/2019 Resolved Problems Problem Noted Date Diagnosed Date Resolved Date History of palpitations 06/25/2022 06/0 01/2023 Sleep disorder 06/25/2022 01/22/2023 Assessment & Plan (06/27/2022 12:58 PM GRADUATE FELLOW): Delayed sleep latency. She would likely improved by taking her evening Zoloft earlier so that it can have time to kick in Elevated blood pressure reading 01/17/2022 01/22/2023 Assessment & Plan (01/17/2022 9:48 PM CDT): BP above goal <130/80. - Asked her to send home BPs - Counseled regarding lifestyle measures to control HTN including low salt diet rich in fruits and vegetables, limiting alcohol use, regular exercise, and weight loss of 5-10% if pt is obese. Viral upper respiratory tract infection 08/29/2021 01/16/2022 Assessment & Plan (08/29/2021 8:44 PM GRADUATE FELLOW): COVID negative. Sx are improving. - Rec nasal rinses bid, flonase 2 sprays every day. - Discussed clinical course and red flag sx. - Ok to return to prior routine since she is afebrile and feeling better. Palpitations 08/29/2021 01/17/2022 Assessment & Plan (08/29/2021 8:48 PM GRADUATE FELLOW): Possibly cough-triggered. Recent TTE with her slicing machine tender normal per pt. - CTM. If does not improve with cough, she will f/u with her slicing machine tender. Strain of lumbar region 03/08/202009/20 Assessment & Plan (03/08/2020 10:14 PM CDT): No red flags. - Rec avoiding exacerbating activities but staying active. No bed rest - Can take ibuprofen 600mg tid prn. If no relief, we can consider muscle relaxers. - Discussed clinical course. She will let me know if there is no improvement in 4 weeks . - - Discussed prevention with core strengthening, proper posture, proper form when exercising. Sore throat 03/08/2020 07/12/2020 Assessment & Plan (03/08/2020 10:16 PM CDT): Suspect 2/2 allergic rhinitis, but cannot exclude mild COVID-19. - Rec that she stay home and get tested for COVID-19. She should remain at home until she gets test results. - She should monitor her temperature bid - Red flags discussed and she will notify me if these occur. - Trial Zyrtec 10mg every day Vasomotor symptoms due to menopause 01/29/2020 10/13/2020 Assessment & Plan (01/29/2020 10:14 AM CDT): She would like to avoid HRT if possible. - Tryial gabapentin 300mg qhs, increase to tid as tolerated. Side effects reviewed. Contact with and (suspected) exposure to other communicable diseases 01/27/2020 06/25/2022 Small intestinal bacterial overgrowth (SIBO) 0 01/22/2023 Assessment & Plan (01/17/2022 9:45 PM CDT): F/b Dr. Saleem, now improved with rifaximin. Assessment & Plan (01/09/2021 10:12 PM CDT): Most likely etiology of her bloating and constipation. EGD with reflux esophagitis, erosive gastritis. Path non specific, H pylori neg c scope normal except 1 diverticulum, rec f/u in 5 years so due in 2021 - Trial Mohini, reviewed dosing and SE - Rec low gas diet for now. Assessment & Plan (10/13/2020 9:05 PM GRADUATE FELLOW): Most likely etiology of her bloating and constipation. EGD with reflux esophagitis, erosive gastritis. Path non specific, H pylori neg c scope normal except 1 diverticulum, rec f/u in 5 years so due in 2021 - Cont Miralax and magnesium prn for constipation - Counseled regarding low gas diet. Assessment & Plan (01/29/2020 10:13 AM CDT): Most likely etiology of her bloating and constipation. EGD with reflux esophagitis, erosive gastritis. Path non specific, H pylori neg c scope normal except 1 diverticulum, rec f/u in 5 years so due in 2021- Requested GI records including EGD and cscope. - Cont Miralax and magnesium prn for constipation - Counseled regarding low gas diet. Assessment & Plan (10/13/2019 4:57 PM GRADUATE FELLOW): Most likely etiology of her bloating and constipation. - Requested GI records including EGD and cscope. - Cont metamucil 2 caps or tablespoons, titrate to tid. If no improvement, will start Linzess or Trulance next visit. - Counseled regarding low gas diet. - Ok to continue probiotic as she does not a benefit. TSH elevation 02/10/2019 10/13/2020 Assessment & Plan (07/18/2020 10:50 PM GRADUATE FELLOW): Clinically euthyroid. Subclinical hypothyroidism. - CTM qyear with Dr. Childers Assessment & Plan (07/12/2020 10:45 AM GRADUATE FELLOW): Clinically euthyroid, but needs repeat labs. With history of anxiety, restless legs syndrome, brisk reflexes (high normal) I am hesitant to start her on thyroid medication with borderline labs. Assessment & Plan (02/12/2019 7:29 AM CDT): Clinically euthyroid, no treatment needed at this time but would need follow-up. Microscopic hematuria 11/19/20132019 Assessment & Plan (01/29/2020 10:11 AM CDT): Noted in [address] urography and cystoscopy. Last UA done in 2018 without hematuria. - Ordered POC UA, will plan to follow once yearly and if returns with persistent microscopic hematuria, repeat workup. Assessment & Plan (10/13/2019 5:01 PM GRADUATE FELLOW): Noted in [address] urography and cystoscopy. Last UA done in 2018 without hematuria. - Needs POC UA next appointment. Encounters Date Type Department Care Team Description 05/21/2025 Results Follow-Up [facility] Medicine Endocrinology Metabolism and Lipid [address] [place] [address] [place] [address] Cheli Morrison RMA Screening Mammogram Right W Cole Unilateral Only 05/21/[address] [facility] Medicine Endocrinology Metabolism and Lipid [address] [place] [address] [place] [address] Alida Childers MD 05/17/2025 Telephone [facility] Endocrinology Metabolism and Lipid [address] [place] [address] [place] [address] Minna Saavedra RN Zebpound denail- need for LMN 05/13/2025 11:40 AM CDT Telemedicine [facility] Endocrinology Metabolism and Lipid [address] [place] [address] [place] [address] Alida Childers MD Tam's thyroiditis (Primary Dx); Pure hypercholesterolemia; Weight gain 05/13/2025 Telephone [facility] Endocrinology Metabolism and Lipid [address] [place] [address] [place] [address] Cheli Morrison RMA Prior Auth (Zepbound 2.5mg) 05/13/2025 Telephone [facility] Endocrinology Metabolism and Lipid [address] [place] [address] [place] [address] Reshma Adams RN encourage to complete e check in for todays tele visit appt 04/30/2025 Orders Only [facility] Juan Dawn MD Neck pain on left side 04/30/2025 Telephone [facility] Orthopaedic Surgery [address] [place] [address] Office [facility] [address] [place] [phone] Juan Dawn MD 04/13/2025 8:31 AM CDT - 04/13/2025 11:59 PM CDT Hospital Encounter [facility] [address] [place] [address] Discharge Disposition: Discharge to home or self care 04/13/2025 8:20 AM CDT Office Visit [facility] Orthopaedic Surgery [address] [place] [address] [address] [place] [phone] Juan Dawn MD Neck pain on left side (Primary Dx); Chronic left-sided low back pain without sciatica 04/06/2025 1:19 PM CDT - 04/06/2025 11:59 PM CDT Hospital Encounter [address] [address] Neck pain Discharge Disposition: Discharge to home or self care 03/31/2025 2:00 PM CDT Office Visit [facility] [address] [place] [address] Khloe He, MORENA Diarrhea, unspecified type (Primary Dx); Abdominal cramping; Nausea 03/31/2025 Results Follow-Up [facility] [address] [place] [address] [address] [place] [address] Khloe He NP Comprehensive metabolic panel 03/30/2025 Results Follow-Up [facility] at [address] [address] Kylie Spence NP Influenza A/B, RSV, and COVID-19 PCR Nasopharyngeal, Vaginitis panel Vaginal, Throat culture Throat, Urine culture Urine, clean voided 03/29/2025 6:45 PM CDT Office Visit [facility] at [address] [phone] Kylie Spence NP UTI symptoms (Primary Dx); Nasopharyngitis acute; Acute cough 03/29/2025 6:27 PM CDT - 03/29/2025 11:59 PM CDT Hospital Encounter [address] [address] Nasopharyngitis acute; UTI symptoms Discharge Disposition: Discharge to home or self care 03/26/2025 8:53 AM CDT - 03/26/2025 11:59 PM CDT Hospital Encounter [facility] Cardiac Diagnostic Lab [facility] [address] [address] Elevated blood pressure reading Discharge Disposition: Discharge to home or self care from Last 3 Months Immunizations Immunization Administration Dates Next Due Influenza, Quadrivalent, Spl it, Preservative Free, Intramuscular 06/11/2023,06/13/2022,06/14/2020 Influenza, Trivalent, IM (MDV) 05/25/2021,2013 TD Preservative Free 01/19/2022 Medical History Medical History Date Comments Hyperlipidemia Shingles Spring 2018 Anxiety Counseling and o n sertraline 100mg daily IBS (irritable bowel syndrome) TSH elevation 02/10/2019 Microscopic hematuria 11/19/2013 Sore throat 03/08/2020 Routine general medical exam ination at a health care facility 10/13/2020 Contact with and (suspected) exposure to other communicable diseases 01/27/2020 Weight gain 06/25/2022 Small intestinal bacterial o vergrowth (SIBO) 10/13/2019 History of palpitations 06/25/2022 Family History Medical History Relation Name Comments Bladder Cancer Father Diabetes Father Heart disease Father Hypertension Father Nephrolithiasis Father Stroke Father Hyperlipidemia Mother Relation Name Status Comments Father Mother Social History Tobacco Use Types Packs/Day Years Used Date Smoking Tobacco: Never Tobacco Cessation:Counseling Given: Not Answered Alcohol Use Standard Drinks/Week Comments Yes 0 [...] on file Legal Sex Female 7:09 PM GRADUATE FELLOW Gender Identity Female 06/25/2022 2:42 PM GRADUATE FELLOW Sexual Orientation Straight 06/25/2022 2: 42 PM GRADUATE FELLOW 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 Not on file Not on file Obstetrics History Last Filed Vital Signs Vital Sign Reading Time Taken Comments Blood Pressure 126/83 03/31/2025 2:01 PM CDT Pulse 69 03/31/2025 2:01 PM CDT Temperature 37.7 C (99.8 F) 03/31/2025 2:01 PM CDT Respiratory Rate 18 03/29/2025 5:49 PM CDT Oxygen Saturation 98% 03/31/2025 2:01 PM CDT Inhaled Oxygen Concentration - - Weight 68.5 kg (151 lb) 03/31/2025 2:01 PM CDT Height 170.2 cm (5' 7) 03/31/2025 2:01 PM CDT Body Mass Index 23.65 03/31/2025 2:01 PM CDT Plan of Treatment Health Maintenance Due Date Last Done Comments Zoster Vaccine (1 of 2) 2020 Covid-19 Vaccine ( season) 2025 02/09/2022, 07/06/2021, 10/23/2020, Additional history exists Influenza Vaccine (#1) 2025 , 06/11/2023, 06/13/2022, Additional history exists Cervical Cancer Screening 11/17/2025 11/17/2024 Depression Screening 02/04/2026 02/04/2025, 08/06/2024, 07/01/2024, Additional history exists Regular Well Visit/Exam 18-64 02/04/2026 02/04/2025, 02/04/2025, 01/27/2024, Additional history exists Breast Cancer Screening-Mammogram 05/21/2026 05/21/2025, 05/12/2020, 05/12/2020 Colon Cancer Screening-Colonoscopy 03/19/2029 Postponed from 1970 (Provider's clinical decision) DTaP/Tdap/Td Vaccine (1 - Tdap) 01/18/2032 01/19/2022 Postponed from 01/20/2022 (Provider's clinical decision) Hepatitis C Screening Completed 10/13/2020 Hepatitis B Screening Completed 02/04/2025 Pneumococcal vaccine <65 Aged Out No longer eligible based on patient's age to complete this topic Procedures Procedure Name Priority Date/Time Associated Diagnosis Comments SCREENING MAMMOGRAM RIGHT W COLE UNILATERAL ONLY Schedule Routine, Read Routine (OP Routine) 05/21/2025 1:33 PM CDT MRI CERVICAL SPINE WO CONTRAST Schedule Routine, Read Routine (OP Routine) 04/30/2025 12:19 PM CDT Neck pain on left side NEURO CT OUTSIDE REFERENCE Routine 04/13/2025 8:31 AM CDT XR SPINE CERVICAL COMPLETE 4 OR 5 VW Schedule Routine, Read Routine (OP Routine) 04/06/2025 1:33 PM CDT Neck pain STOOL CULTURE Routine 03/31/2025 4:30 PM CDT Diarrhea, unspecified type Abdominal cramping COMPREHENSIVE METABOLIC PANEL Routine 03/31/2025 2:34 PM CDT Diarrhea, unspecified type Abdominal cramping CBC WITH AUTO DIFFERENTIAL Routine 03/31/2025 2:34 PM CDT Diarrhea, unspecified type Abdominal cramping URINE CULTURE Routine 03/29/2025 6:27 PM CDT UTI symptoms VAGINITIS PANEL Routine 03/29/2025 6:27 PM CDT UTI symptoms INFLUENZA A/B, RSV, AND COVID-19 PCR Routine 03/29/2025 6:27 PM CDT Nasopharyngitis acute THROAT CULTURE Routine 03/29/2025 6:27 PM CDT Nasopharyngitis acute POC INFLUENZA A/B, COVID-19 ANTIGEN Routine 03/29/2025 6:13 PM CDT Nasopharyngitis acute POCT RAPID STREP Routine 03/29/2025 6:13 PM CDT Nasopharyngitis acute POCT URINALYSIS DIPSTICK Routine 03/29/2025 6:08 PM CDT UTI symptoms AMBULATORY BLOOD PRESSURE MONITOR Routine 03/26/2025 8:55 AM CDT Elevated blood pressure reading HEPATITIS C ANTIBODY Routine 10/13/2020 11:14 AM GRADUATE FELLOW Routine general medical examination at a health care facility from Last 3 Months or Most Recently Relevant to Health Maintenance Results * Screening Mammogram Right W Cole Unilateral Only (05/21/2025 1:33 PM CDT) Anatomical Region Laterality Modality Breast Right Mammography Alida Childers MD IMG MAMMO PROCEDURES Final Result * MRI Cervical Spine WO Contrast (04/30/2025 12:19 PM CDT) Anatomical Region Laterality Modality Spine N/A Magnetic Resonan ce Juan Dawn MD [facility] [place] PROCEDURES Final Result * Neuro CT Outside Reference (04/13/2025 8:31 AM CDT) Impressions [facility] - 04/13/2025 8:31 AM CDT These images are for Reference purposes only and have not been reviewed by [facility] Radiology. There will be no report generated by a [facility] Radiologist. Narrative [facility] - 04/13/2025 8:31 AM CDT EXAMINATION: Images For Reference Purposes Only Juan Dawn MD [facility] [place] PROCEDURES Final Result [facility] * XR Spine Cervical Complete 4 Or 5 Vw (04/06/2025 1:33 PM CDT) Anatomical Region Laterality Modality Spine N/A Computed Radiogr aphy 04/15/2025 3:26 PM CDT Narrative 04/15/2025 3:28 PM CDT EXAM DESCRIPTION: XR SPINE CERVICAL COMPLETE 4 OR 5 VW REASON FOR STUDY: chronic neck pain Chronic Neck pain, nki, bilat leg pain TECHNIQUE: Frontal, lateral and bilateral oblique radiographic view(s) of the cervical spine. COMPARISON: None available. FINDINGS: There is mild retrolisthesis of C5 on C6 and mild anterolisthesis of C6 on C7. Yibv-fd-ktzxouks intervertebral disc height loss with endplate degenerative changes favoring C5-C6 and to a lesser extent at C3-C4, C4-C5 and C6-C7. Uncovertebral spurring and facet arthropathy with varying degrees of bilateral osseous neural foraminal stenosis, most noticeable at C5-C6 and C6-C7. No significant prevertebral soft tissue swelling. IMPRESSION: Dfom-nk-vevnivnm cervical spine degenerative changes as above. THIS IS AN ELECTRONICALLY VERIFIED FINAL REPORT 04/15/2025 3:28 PM - Electronically signed by Howard Reilly D.O. AP T: Report ID: [id number] Reading Location: [id number] Procedure Note Howard Reilly, - 04/15/2025 EXAM DESCRIPTION: XR SPINE CERVICAL COMPLETE 4 OR 5 VW REASON FOR STUDY: chronic neck pain Chronic Neck pain, nki, bilat leg pain TECHNIQUE: Frontal, lateral and bilateral oblique radiographic view(s) ofthe cervical spine. COMPARISON: None available. FINDINGS: There is mild retrolisthesis of C5 on C6 and mildanterolisthesis of C6 on C7. Rrja-cb-mzqutfsn intervertebral disc height loss with endplate degenerative changes favoring C5-C6 and to a lesser extent at C3-C4, C4-C5and C6-C7. Uncovertebral spurring and facet arthropathy with varying degreesof bilateral osseous neural foraminal stenosis, most noticeable at C5-C6 and C6-C7. No significant prevertebral soft tissue swelling. IMPRESSION: Cifl-sk-qsahrdeu cervical spine degenerative changes as above. THIS IS AN ELECTRONICALLY VERIFIED FINAL REPORT 04/15/2025 3:28 PM - Electronically signed by Howard Reilly D.O. AP T: Report ID: [id number] Reading Location: [id number] Hamzah Scott MD IMG XR PROCEDURES Gricelda l Result * Stool culture Stool Rectum (03/31/2025 4:30 PM CDT) Salmonella/Shigel la Screen Final report [facility] - 01 Salmonella/ Shigella Screen Comment [facility] - 01 Comment:No Salmonella or Aishwarya gella recovered. Campylobacter Culture Final report [facility] - 01 Campylobacter Comment [facility] - 01 Comment:No Campylobacter spe cies isolated. E coli Shiga Toxin EIA Negative Negative [facility] - 01 Stool (Rectum) 03/31/2025 4: 30 PM CDT 04/01/2025 Comment:ST Narrative [facility] - 04/05/2025 9:36 AM CDT Performed at: 01 - [address] [id number] Extruding Machine Operator: Yannick Paul PhD, Phone: [phone] us Khloe He NP LAB MICROBIOLOGY - GEN ERAL ORDERABLES Final Result [facility] - * CBC with auto differential (03/31/2025 2:34 PM CDT) WBC 6.3 3.5 - 10.0 K/uL [facility] RBC 4.47 3.50 - 5.50 M/uL [facility] Hemoglobin 14.1 11.5 - 16.5 g/dL [facility] Hematocrit 39.8 35.0 - 55.0 % [facility] MCV 88.8 75.0 - 100.0 fL [facility] MCH 31.50 25.00 - 35.00 pg [facility] MCHC 35.50 31.00 - 38.00 g/dL [facility] RDW 13.2 11.0 - 16.0 % [facility] Platelets 232 140 - 400 K/uL [facility] MPV 8.0 8.0 - 11.0 fL [facility] Granulocyte, Absolute 4.6 1.2 - 8.0 K/uL [facility] Lymphocyte, Absolute 1.3 0.5 - 5.0 K/uL [facility] Monocyte, Absolute 0.4 0.1 - 1.5 K/uL [facility] Granulocyte, Percentage 72.3 35.0 - 80.0 % [facility] Lymphocyte, Percentage 21.4 15.0 - 50.0 % [facility] Monocyte, Percentage 6.3 2.0 - 15.0 % [facility] Blood 03/31/2025 2:34 PM CDT 03/31/2025 2:55 PM CDT Khloe He LEG BREAKER LAB BLOOD ORDERABLES F inal Result [facility] [address] [phone] * (ABNORMAL) Comprehensive metabolic panel (03/31/2025 2:34 PM CDT) Pathologist [facility] Glucose 103 74 - 200 mg/dL [facility] BUN 9 6 - 20 mg/dL [facility] Creatinine 0.8 0.7 - 1.3 mg/dL [facility] BUN/Creat Ratio 11 Ratio [facility] Bilirubin, Total 0.3 0.0 - 1.2 mg/dL [facility] AST (SGOT) 38(H) 0 - 32 U/L [facility] ALT (SGPT) 29 10 - 35 U/L [facility] Alkaline phosphatase 64 35 - 104 U/L [facility] Calcium 9.3 8.6 - 10.0 mg/dL [facility] Sodium 134(L) 135 - 145 mEq/L [facility] Potassium 4.6 3.5 - 5.1 mEq/L [facility] Chloride 99 98 - 107 mEq/L [facility] CO2 25.4 22.0 - 32.0 mEq/L [facility] Anion Gap 10 3 - 12 mEq/L [facility] Total Protein 7.0 6.0 - 8.1 g/dL [facility] Albumin 4.3 3.5 - 5.2 g/dL [facility] Globulin 2.6 g/dL [facility] Albumin/Globulin 1.7 Ratio [facility] eGFR 86.94 [facility] Blood 03/31/2025 2:34 PM CDT 03/31/2025 2:55 PM CDT Khloe He NP LAB BLOOD ORDERABLES F inal Result [facility] [facility] [address] [address], [facility] * Influenza A/B, RSV, and COVID-19 PCR Nasopharyngeal (03/29/2025 6:27 PM CDT) COVID-19 RNA Negative Negative Influenza A RNA Negative Negative [facility] Influenza B RNA Negative Negative [facility] RSV RNA Negative Negative [facility] Comment: Interpretive data: Testing performed by [facility]. This test is performed using the Dotstudio[employer] Xpert Xpress CoV-2/Flu/RSV plus assay. This is a multiplex, real-time reverse transcriptase PCR assay intended for the qualitative detection of nucleic acid from SARS-CoV-2, influenza A, influenza B, and respiratory syncytial virus. This assay has been cleared by the [place] Food and Drug administration. The performance characteristics have been verified by the [facility]. Results must be considered in the clinical context, and a negative result does not rule out infection. Interpretive Data last revised 2023 Nasopharyngeal 03/29/2025 6: 27 PM CDT 03/29/2025 8:44 PM CDT Narrative [facility] - 03/29/2025 9:40 PM CDT Is the Patient experiencing symptoms consistent with COVID?->Yes Reason for testing?->Symptomatic Kylie Spence NP LAB MICROBIOLOGY - GENERAL ORD ERABLES Final Result Performing Organization Address [facility]/ZIP Co de Phone Number [facility] [address] Department of Laboratories [place], [place] [id number] * Vaginitis panel Vaginal (03/29/2025 6:27 PM CDT) Bacterial Vaginosis Not Detected Not Detected Comment:A negative result do es not preclude a possible infection. Results should be considered in conjunction with clinical presentation to determine the disease status. Cassia group Not Detected Not Detected [facility] Cassia glabrata/ krusei Not Detected Not Detected [facility] Trichomonas DNA Not Detected Not Detected [facility] Vaginal 03/29/2025 6:27 PM CDT 03/29/2025 8:44 PM CDT Narrative [facility] - 03/29/2025 10:40 PM CDT The CepNowForce[employer] Xpert Xpress MVP test detects DNA targets from anaerobic bacteria associated with bacterial vaginosis, Cassia species associated with vulvovaginal candidiasis, and Trichomonas vaginalis by nucleic acid amplification testing (NAAT). Results should be interpreted in conjunction with other clinical data. This test cannot be used to assess therapeutic success or failure because target nucleic acids may persist following antimicrobial therapy. This test has been cleared by the [place] Food and Drug Administration to aid in the diagnosis of vaginal infections in symptomatic women ages 14 and older. The performance characteristics of this test have been verified by the [facility]. Kylie Spence NP LAB MICROBIOLOGY - GENERAL ORD ERABLES Final Result Performing Organization Address City/[facility] Co de Phone Number [facility]AT[facility] [address] Department [place] [address] [place] * Urine culture Urine, clean voided (03/29/2025 6:27 PM CDT) Report Final Report: Less than 100,000 colonies/mL (clinically insignificant growth based on current clinical standards) Comment:Testing performed by : [facility], [address] [place]., [address] Organism (CLINICALLY INSIGNIFICANT GROWTH [facility] Urine, clean voided 03/29/2025 6:27 PM CDT 03/30/2025 12:07 AM CDT Narrative [facility] - 03/31/2025 7:48 AM CDT Testing performed by [facility] Microbiology Laboratory ([phone]) Kylie Spence NP LAB MICROBIOLOGY - GENERAL ORD ERABLES Final Result Performing Organization Address City/[facility]/ZIP Co de Phone Number [facility] [address] [place] [address] * Throat culture Throat (03/29/2025 6:27 PM CDT) Report Final Report: No growth of pathogens. Comment:Testing performed by : [facility], [address] [facility], [place]., [address] Throat 03/29/2025 6:27 PM CDT 03/30/2025 12:07 AM CDT Narrative [facility] - 03/30/2025 7:12 PM CDT Testing performed by [facility] ([phone]). us Kylie Spence NP LAB MICROBIOLOGY - GENERAL ORD ERABLES Final Result [facility] [address] Department [place] [address] * POC Influenza A/B, COVID-19 antigen (03/29/2025 6:13 PM CDT) Influenza A Ag, POC Negative Negative [facility] Influenza B Ag, POC Negative Negative [facility] COVID-19 Ag POC Presumptive Negative Presumptive Negative, Invalid [facility] Nasal 03/29/2025 6:13 PM CDT us Kylie Spence LEG BREAKER POINT OF CARE TEST ORDERABLES Final Result Performing Organization Address [facility]/ZIP Co de Phone Number [facility] [address] [place] [address] * POCT rapid strep A (03/29/2025 6:13 PM CDT) Rapid Strep A, POC Negative Negative Swab 03/29/2025 6:13 PM CDT us Kylie Spence NP POINT OF CARE TEST ORDERABLES Final Result * (ABNORMAL) POCT urinalysis dipstick (03/29/2025 6:08 PM CDT) Color, Urine, POC Light Yellow Clarity, ur, POC Clear Clear Glucose, ur, POC Negative Negative Bilirubin, ur, POC Negative Negative Ketones, ur, POC Negative Negative Specific [place], POC 1.020 1.003 - 1.030 Blood, ur, POC Small(A) Negative pH, ur, POC 6.0 5.0 - 8.0 Protein, ur, POC Negative Negative Urobilinogen, urine, POC 0.2 0.2 - 1.0 mg/dL Nitrite, ur, POC Negative Negative Leukocytes, ur, POC Negative Negative Lot Number [id number] Urine 03/29/2025 6:08 PM CDT Result [facility] Kylie Spence NP POINT OF CARE TEST ORDERABLES Final Result * 24 hour Blood Pressure Monitor (03/26/2025 8:55 AM CDT) [facility] Max Systolic Blood Pressure 140 SENTINEL Systolic Average Blood Pressure 108 SENTINEL Min Systolic Blood Pressure 84 SENTINEL Max Diastolic Blood Pressure 83 SENTINEL Diastolic Average Blood Pressure 65 SENTINEL Min Diastolic Blood Pressure 48 SENTINEL Anatomical Region Laterality Modality Electrocardiogra phy 03/26/2025 9:11 AM CDT 03/26/2025 9:11 AM CDT Narrative 04/13/2025 1:32 PM CDT Result Comments Result Comments Result Comments Procedure Note Anay Munguia MD - 04/13/2025 Result Comments Result Comments Result Comments Result [facility] Hamzah Scott MD CV CARDIAC SERVICES ME OCEDURES Final Result * Hepatitis C antibody (10/13/2020 11:14 AM GRADUATE FELLOW) [facility] Hep C Ab NON-REACTI VE NON-REACT DE [facility] SIGNAL TO CUT-OFF 0.06 <1.00 [facility] Comment: HCV antibody was non-reactive. There is no laboratory evidence of HCV infection. In most cases, no further action is required. However, if recent HCV exposure is suspected, a test for HCV RNA (test code 59158) is suggested. For additional information please refer to http://education.BookMyShow/faq/UTN35u6 (This link is being provided for informational/ educational purposes only.) Blood specimen (specimen) 10/13/2020 11:14 AM GRADUATE FELLOW 10/14/2020 4:50 AM GRADUATE FELLOW Ara Milton MD LAB MICROBIOLOGY - GEN ERAL ORDERABLES Final Result Performing Organization Address City/State/[facility] Phone Number [facility] [address] [place] [address] from Last 3 Months or Most Recently Relevant to Health Maintenance Insurance [facility] [place] [address] [facility] Care Teams Spice Miller Relationship Specialty Start Date End Date Hamzah Scott MD [address] [place] [address] [address] [place] [address] PCP - General Internal Medicine 08/01/23 Moncho George MD [address] [phone] Consulting Physician Obstetrics and Gynecology 06/25/22 Alida Childers MD [address] [place] [place] [phone] Referring Physician Endocrinology Diabetes & Metabolism 06/25/22 Moncho Henderson MD [address] [place] [address] [address] [place] [address] Referring Physician Cardiovascular Disease 06/25/22
--- OUTSIDE RECORDS SUMMARY | 2025-06-16 06:19 | XMS_ITS | Encounter Summary ---
Author Organization [employer] Address [address] [place] [address] Care Team Providers Care Newspaper Manager Name Role Phone Ara Milton MD Primary Care Provider Encounter Details Date Type Department Care Team (Late st Contact Info) Description 10/11/2005 Outpatient Historical [facility] Support Serv. (Adt Cardiology[facility]) [address] [place] [phone] Faisal Mendoza MD NO ADDRESS ON FILE Social History Tobacco Use Types Packs/Day Years [...] on filedocumented in this encounter Care Teams Newspaper Manager Relationship Specialty Start Date End Date Ara Milton MD PCP - General Internal Medicine 03/03/20 documented as of this encounter
--- OUTSIDE RECORDS SUMMARY | 2025-06-16 06:19 | XMS_ITS | Clinical Summary ---
Author Organization [facility] [employer] Address [address] [facility] [place] [address] Care Team Providers Care Top Lift Nailer Name Role Phone Mike Kay MD Unavailable [phone] Source Comments [facility] [employer],non-owned Affiliates and Associated Physician Practices is amultiple site organization consisting of ambulatory clinics and hospital sitesin [place], [place] and [place]. This disclosure is being madepursuant to the Care Everywhere program and may not contain all information available regarding this patient. Last updated 18.[facility] [employer] Allergies Active Allergy Reactions Criticality Noted Date Comments Erythromycin Nausea and/or Vomiting 12/01/2016 Medications * Be aware that medications may not be up to date on this document. Alwaysverify current medications with the patient. Sertraline HCl (ZOLOFT PO) Active Omeprazole (PRILOSEC PO) Active fluticasone propionate (FLONASE) 50 MCG/ACT nasal sprayIndications :Strep pharyngitis Allen 2 sprays into each nostril once daily 1 bottles 12/31/2017 Active diphenhydramine 12.5mg/ml, 30ml,; visc lidocaine 2%, 30ml,; maalox, 30ml, (MIRACLE MOUTHWASH) SUSPIndications: Strep pharyngitis Swish and spit 5 mL 4 times daily as needed 90 mL 12/31/2017 Active Family History Medical History Relation Name Comments CAD (Coronary Artery Disease) Father stent placement Diabetes - Type 2 Father Hypertension Father Asthma Neg Hx Autoimmune Disease Neg Hx Bipolar Disorder Neg Hx Cancer - Breast Neg Hx Cancer - Colon Neg Hx Cancer - Other Neg Hx Cancer - Ovarian Neg Hx Cancer - Pancreatic Neg Hx Cancer - Prostate Neg Hx Depression Neg Hx Eczema Neg Hx Migraine Neg Hx Osteoporosis Neg Hx Seizures Neg Hx Sudd. 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 Gender Identity Not on file Sexual Orientation Not on file Last Filed Vital Signs Vital Sign Reading Time Taken Comments Blood Pressure 119/70 12/31/2017 2:36 PM CDT Pulse 68 12/31/2017 2:36 PM CDT Temperature 36.8 C (98.3 F) 12/31/2017 2:36 PM CDT Respiratory Rate 16 12/31/2017 2:36 PM CDT Oxygen Saturation 98% 12/31/2017 2:36 PM CDT Inhaled Oxygen Concentration - - Weight 63.5 kg (140 lb) 12/31/2017 2:36 PM CDT Height 170.2 cm (5' 7) 12/31/2017 2:36 PM CDT Body Mass Index 21.93 12/31/2017 2:36 PM CDT Plan of Treatment Health Maintenance Due Date Last Done Comments COLOGUARD (AGES 45-75) - COL ON CA SCREENING 1970 COLON MONITORING 1970 COLONOSCOPY - COLON CA SCREENING 1970 CT COLONOGRAPHY - COLON CA SCREENING 1970 Colorectal Cancer Screening 1970 FIT - COLON CA SCREENING 1970 FLEX SIG - COLON CA SCREENING 1970 LIPID TESTING 1970 MAMMOGRAM 1970 HIV SCREENING 1985 HEPATITIS C SCREENING 08/11/1988 DTAP/TDAP/TD VACCINES (1 - Tdap) 1989 HEPATITIS B VACCINE (1 of 3 - 19+ 3-dose series) 1989 PNEUMOCOCCAL VACCINE 50+ (1 of 1 - PCV) 2020 ZOSTER VACCINE (1 of 2) 2020 DEPRESSION SCREENING 08/19/2024 COVID-19 VACCINE (3 - 2024-2 6 season) 2025 10/23/2020, 10/02/2020 INFLUENZA VACCINE (#1) 2025 , 09/09/2013 HIB VACCINE Aged Out No longer eligi ble based on patient's age to complete this topic HPV VACCINE Aged Out No longer eligi ble based on patient's age to complete this topic MENINGOCOCCAL (Group B) VACCINE SHARED DECISION-MAKING Aged Out No longer eligible based on patient's age to complete this topic MENINGOCOCCAL GROUPS A/C/Y/W VACCINE Aged Out No longer eligible b ased on patient's age to complete this topic Insurance [facility] Care Teams Top Lift Nailer Relationship Specialty Start Date End Date Mike Kay MD [address] [place] [address] Internal Medicine 12/31/17
--- OUTSIDE RECORDS SUMMARY | 2025-06-16 06:19 | XMS_ITS | Encounter Summary ---
Author Organization [employer] Address [address] [place] [address] Care Team Providers Care Truck Striker Name Role Phone Ara Milton MD Primary Care Provider Encounter Details Date Type Department Care Team (Latest Contact Info) Description 08/25/2002 Inpatient Historical [facility] PATIENT IN A BED Moncho George MD [address] [facility] [address] [place] [phone] UTERINE INERT NEC-DELIVERED (Primary Dx) Social History Tobacco Use Types [...] encounter Visit Diagnoses Diagnosis Other and unspecified uterine inertia, with delivery- Primary documented in this encounter Care Teams Truck Striker Relationship Specialty Start Date End Date Ara Milton MD PCP - General Internal Medicine 03/03/20 documented as of this encounter
--- OUTSIDE RECORDS SUMMARY | 2025-06-16 06:19 | XMS_ITS | Encounter Summary ---
Author Organization [employer] Address [address] [place] [address] Care Team Providers Care Distributor Cleaner Name Role Phone Ara Milton MD Primary Care Provider Encounter Details Date Type Department Care Team (Late st Contact Info) Description 10/11/2005 Outpatient Historical [facility] NUCLEAR MEDICINE [facility] Jacque Solares MD [address] [place], [place] [phone] PREMATURE BEATS NEC (Primary Dx) Social History Tobacco Use Types [...] of this encounter Visit Diagnoses Diagnosis Other premature beats- Primary documented in this encounter Care Teams Distributor Cleaner Relationship Specialty Start Date End Date Ara Milton MD PCP - General Internal Medicine 03/03/20 documented as of this encounter
--- NOTE | 2025-06-16 06:20 | ECG_ITS ---
Test Date: 2025-06-16 06:32:12 Measurements Intervals [place] Rate: 74 P: 58 CA: 145 QRS: 42 QRSD: 92 T: 61 QT: 374 QTc: 417 Interpretive Statements SINUS RHYTHM MINIMAL Q WAVES- HIGH LATERAL LEADS BORDERLINE ECG No previous ECG available for comparison Electronically Signed On 06-16-2025 07:59:41 CDT by Serg Steiner D.O.
[2025-06-16 06:28] VITALS: BP 139/74; PULSE 76; RESP 16; TEMP 36.8; O2SAT 99
[2025-06-16 07:21] VITALS: BP 121/74; PULSE 69; RESP 13; O2SAT 98
--- OUTSIDE RECORDS SUMMARY | 2025-06-16 07:51 | XMS_ITS | Encounter Summary ---
Author Organization [employer] Address [address] [place] [address] Care Team Providers Care Corporate Law Assistant Name Role Phone Ara Milton MD Primary Care Provider Encounter Details Date Type Department Care Team (Late st Contact Info) Description 10/11/2005 Outpatient Historical [facility] Support Serv. ([facility]t Cardiology[facility]) [address] [place] [phone] Faisal Mendoza MD NO ADDRESS ON FILE [...] on filedocumented in this encounter Care Teams Corporate Law Assistant Relationship Specialty Start Date End Date Ara Milton MD PCP - General Internal Medicine 03/03/20 documented as of this encounter
--- OUTSIDE RECORDS SUMMARY | 2025-06-16 07:51 | XMS_ITS | Encounter Summary ---
Author Organization [employer] Address [address] [place] [address] Care Team Providers Care Wheel Blocker Name Role Phone Ara Milton MD Primary Care Provider Encounter Details Date Type Department Care Team (Late st Contact Info) Description 08/21/1999 Emergency [facility] EMERGENCY ROOM [facility] Conversion, History Er, Authorized P NO ADDRESS ON FILE Surgical or other procedure not carried out because of patient's decision (Primary Dx) Social History Tobacco Use Types [...] as of this encounter Visit Diagnoses Diagnosis Surgical or other procedure not carried out because of patient's decision- Primary documented in this encounter Care Teams Wheel Blocker Relationship Specialty Start Date End Date Ara Milton MD PCP - General Internal Medicine 03/03/20 documented as of this encounter
--- OUTSIDE RECORDS SUMMARY | 2025-06-16 07:51 | XMS_ITS | Encounter Summary ---
Author Organization [employer] Address [address] [place] [address] Care Team Providers Care Show Host Or Hostess Name Role Phone Ara Milton MD Primary Care Provider Encounter Details Date Type Department Care Team (Latest Contact Info) Description 02/12/2000 Outpatient Historical [facility] OBSERVATION BED Moncho George MD [address] [facility] [address] [place] [phone] Threatened premature labor, antepartum(644.03) (Primary Dx) Social [...] antepartum documented in this encounter Care Teams Show Host Or Hostess Relationship Specialty Start Date End Date Ara Milton MD PCP - General Internal Medicine 03/03/20 documented as of this encounter
--- OUTSIDE RECORDS SUMMARY | 2025-06-16 07:51 | XMS_ITS | Clinical Summary ---
Author Organization [facility] Address [address] [address] Care Team Providers Care Property Caretaker Name Role Phone Mike Kay MD Unavailable [phone] Source Comments [facility],non-owned Affiliates and Associated Physician Practices is amultiple site organization consisting of ambulatory clinics and hospital sitesin [place], [place], [place] and [place]. This disclosure is being madepursuant to the Care Everywhere program and may not contain all information available regarding this patient. Last updated 18.[facility] Allergies Active Allergy Reactions Criticality Noted Date Comments Erythromycin Nausea and/or Vomiting 12/01/2016 Medications * Be aware that medications may not be up to date on this document. Alwaysverify current medications with the patient. 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 Care Teams Property Caretaker Relationship Specialty Start Date End Date Mike Kay MD [address] [place] [address] Internal Medicine 12/31/17
--- OUTSIDE RECORDS SUMMARY | 2025-06-16 07:51 | XMS_ITS | Encounter Summary ---
Author Organization [facility] Address [address] [place] [address] Care Team Providers Care Cigar Head Piercer Name Role Phone Ara Milton MD Primary Care Provider Encounter Details Date Type Department Care Team (Late st Contact Info) Description 10/11/2005 Outpatient Historical [facility] Jacque Solares MD [address] [place], [place] [id number] PREMATURE BEATS NEC (Primary Dx) Social History [...] Primary documented in this encounter Care Teams Cigar Head Piercer Relationship Specialty Start Date End Date Ara Milton MD PCP - General Internal Medicine 03/03/20 documented as of this encounter
--- OUTSIDE RECORDS SUMMARY | 2025-06-16 07:51 | XMS_ITS | Encounter Summary ---
Author Organization [facility] Address [address] [place] [address] Phone Care Team Providers Care Worm Packer Name Role Phone Ara Milton MD Primary Care Provider Moncho George MD Unavailable [phone] Alida Childers MD Unavailable [phone] Moncho Henderson MD Unavailable Hamzah Scott MD Primary Care Provider Encounter Details Date Type Department Care Team (Late st Contact Info) Description 01/09/[address] [facility] [address] [place] [address] Ara Milton MD [address] [place] [address] Social History Tobacco Use Types [...] on file Legal Sex Female 7:09 PM TC OPERATOR Gender Identity Female 06/25/2022 2:42 PM TC OPERATOR Sexual Orientation Straight 06/25/2022 2: 42 PM TC OPERATOR 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 Not on file Not on file documented as of this encounter Plan of Treatment Not on file documented as of this encounter Visit Diagnoses Not on filedocumented in this encounter Additional Health Concerns Infection Onset Date Last Indicated Resolved Time COVID: Suspected 08/28/2021 08/28/2021 08/29/2021 2:46 AM TC OPERATOR COVID: Suspected 03/29/2025 03/29/2025 03/29/2025 6:14 PM CDT COVID: Suspected 03/29/2025 03/29/2025 03/29/2025 9:41 PM CDT documented as of this encounter Care Teams Worm Packer Relationship Specialty Start Date End Date Ara Milton MD [address] [place] [address] PCP - General Internal Medicine 10/01/19 07/31/23 Hamzah Scott MD [address] [place] [address] PCP - General Internal Medicine 08/01/23 Moncho George MD [address] [address] Consulting Physician Obstetrics and Gynecology 06/25/22 Alida Childers MD [address] [address] Referring Physician Endocrinology Diabetes & Metabolism 06/25/22 Moncho Henderson MD [address] [place] [address] Referring Physician Cardiovascular Disease 06/25/22 documented as of this encounter
--- OUTSIDE RECORDS SUMMARY | 2025-06-16 07:51 | XMS_ITS | Encounter Summary ---
Author Organization [employer] Address [address] [place] [address] Care Team Providers Care Inside Upholsterer Name Role Phone Ara Milton MD Primary Care Provider Encounter Details Date Type Department Care Team (Latest Contact Info) Description 07/01/1998 Inpatient Historical HIS PATIENT IN A BED Price Rader MD NO ADDRESS ON FILE Moncho George MD [id number] [place] [address] Other and unspecified cord entanglement, [...] Primary documented in this encounter Care Teams Inside Upholsterer Relationship Specialty Start Date End Date Ara Milton MD PCP - General Internal Medicine 03/03/20 documented as of this encounter
--- OUTSIDE RECORDS SUMMARY | 2025-06-16 07:51 | XMS_ITS | Encounter Summary ---
Author Organization [facility] Address [address] [place] [address] Care Team Providers Care Pharmacist Hospital Name Role Phone Ara Milton MD Primary Care Provider Encounter Details Date Type Department Care Team (Latest Contact Info) Description 03/11/2000 Inpatient Historical HIS PATIENT IN A BED Tanmay, Joel Jarvis MD [address] [place] [address] Moncho George MD [address] [place] [address] Second-degree perineal laceration, with delivery [...] Primary documented in this encounter Care Teams Pharmacist Hospital Relationship Specialty Start Date End Date Ara Milton MD PCP - General Internal Medicine 03/03/20 documented as of this encounter
--- OUTSIDE RECORDS SUMMARY | 2025-06-16 07:51 | XMS_ITS | Encounter Summary ---
Author Organization [facility] Address [address] [place] [address] Care Team Providers Care Ops Manager Name Role Phone Ara Milton MD Primary Care Provider Encounter Details Date Type Department Care Team (Latest Contact Info) Description 08/25/2002 Inpatient Historical HIS PATIENT IN A BED Moncho George MD [address] [facility] [address] [place] [phone] UTERINE INERT NEC-DELIVERED (Primary Dx) Social History [...] Primary documented in this encounter Care Teams Ops Manager Relationship Specialty Start Date End Date Ara Milton MD PCP - General Internal Medicine 03/03/20 documented as of this encounter
--- OUTSIDE RECORDS SUMMARY | 2025-06-16 07:52 | XMS_ITS | Clinical Summary ---
Author Organization [facility] Address [address] [place] [address] Care Team Providers Care Director Of Government Sales Name Role Phone Moncho George MD Unavailable [phone] Alida Childers MD Unavailable [phone] Moncho Henderson MD Unavailable [phone] Hamzah Scott MD Primary Care Provider [...] 07/01/2024 Assessment & Plan (07/01/2024 4:03 PM CORPORATE LEGAL INTERN): suspect change in weather/ stress / environment [...] time Assessment & Plan (06/25/2023 1:43 PM CORPORATE LEGAL INTERN): With mild hypothyroidism; increasing estrogen and progesterone supplements so would benefit from starting low-dose levothyroxine Weight gain 06/25/2022 Assessment & Plan (05/13/2025 7:00 PM CDT): Difficulty with management, despite diet and lifestyle. Postmenopausal 06/25/2022 Overview (06/25/2023): Images from the original note were not included. DEXA 07/27/22: Assessment & Plan (06/27/2023 8:13 PM CORPORATE LEGAL INTERN): Being managed by her other doctors. HRT supplementation likely to affect thyroid metabolism Assessment & Plan (01/22/2023 9:02 PM CDT): We discussed r/b/a of HRT for menopausal sx. She will discuss further with her retail business development manager Assessment & Plan (06/27/2022 12:58 PM CORPORATE LEGAL INTERN): Not on estrogen therapy. Needs DEXA bone [...] 2028 - Mammogram 12/2022 normal goes to [facility] - Pap: 02/2020 neg for RAQUEL and [...] 2022 - Mammogram 12/2021 normal goes to [facility] - Pap: 02/2020 neg for RAQUEL and [...] available. Assessment & Plan (10/13/2020 11:03 AM CORPORATE LEGAL INTERN): - - Depression screen: PHQ Screening PHQ-2 Total Score (If total score is 3 or more points, staff should administer the PHQ-9): 2 PHQ-9 Total Score: 7 - A1c: normal - Lipids: see HLD - DEXA: refer at 65 yo - Colon cancer: hx of polyps, due 2022 - Mammogram 03/2020 and normal goes to [facility] - Pap: 02/2020 neg for RAQUEL and [...] activity Assessment & Plan (10/13/2020 9:07 PM CORPORATE LEGAL INTERN): F/b Dr. Patiño in psychiatry. - Cont sertraline 150mg every day - lorazepam 0.5mg bid prn - cont therapy, regular physical activity Polyp of colon 10/13/2019 Assessment & Plan (10/13/2020 9:06 PM CORPORATE LEGAL INTERN): Hx of adenomas, last cscope in 2016 with only diverticulosis so due for f/u in 2021 Assessment & Plan (10/13/2019 4:58 PM CORPORATE LEGAL INTERN): Noted on cscope [id number], unclear type. - Requested records. Hyperlipidemia, unspecified 02/20/2019 Assessment & Plan (05/13/2025 6:56 PM CDT): Being managed by her student accounts manager, on rosuvastatin. Assessment & Plan (05/18/2024 7:14 PM CDT): Being managed by her student accounts manager, on rosuvastatin. Assessment & Plan (11/13/2023 8:37 PM CDT): Being managed by her student accounts manager, on rosuvastatin. Assessment & Plan (06/27/2023 8:12 PM CORPORATE LEGAL INTERN): Being managed by her student accounts manager,.on rosuvastatin. Assessment & Plan (01/22/2023 9:00 PM [...] day Assessment & Plan (06/27/2022 12:58 PM CORPORATE LEGAL INTERN): Being managed by her student accounts manager, and she is open to the idea of possibly increasing her dose of rosuvastatin. She will discuss with the Joint [facility] Assessment & Plan (01/17/2022 9:44 PM CDT): Cont rosuvastatin 10mg every day Assessment & Plan (10/13/2020 9:04 PM CORPORATE LEGAL INTERN): Most recent LDL 184, which has increased [...] cholesterol. Assessment & Plan (07/18/2020 10:50 PM CORPORATE LEGAL INTERN): LDL 164. Her ASCVD is low enough that she does not need to start a statin, however if she would like to start red yeast rice or lovastatin due to her family history I am ok with this. - Counseled regarding diet to lower cholesterol. Assessment & Plan (07/12/2020 10:38 AM CORPORATE LEGAL INTERN): She is currently working hard with diet [...] qyear. Assessment & Plan (10/13/2019 4:58 PM CORPORATE LEGAL INTERN): 04/2019 Tchol 237, LDL 149, HDL 67, [...] 01/22/2023 Assessment & Plan (06/27/2022 12:58 PM CORPORATE LEGAL INTERN): Delayed sleep latency. She would likely improved [...] 01/16/2022 Assessment & Plan (08/29/2021 8:44 PM CORPORATE LEGAL INTERN): COVID negative. Sx are improving. - Rec nasal rinses bid, flonase 2 sprays every day. - Discussed clinical course and red flag sx. - Ok to return to prior routine since she is afebrile and feeling better. Palpitations 08/29/2021 01/17/2022 Assessment & Plan (08/29/2021 8:48 PM CORPORATE LEGAL INTERN): Possibly cough-triggered. Recent TTE with her student accounts manager normal per pt. - CTM. If does not improve with cough, she will f/u with her student accounts manager. Strain of lumbar region 03/08/202009/20 Assessment & [...] now. Assessment & Plan (10/13/2020 9:05 PM CORPORATE LEGAL INTERN): Most likely etiology of her bloating and [...] diet. Assessment & Plan (10/13/2019 4:57 PM CORPORATE LEGAL INTERN): Most likely etiology of her bloating and constipation. - Requested GI records including EGD and cscope. - Cont metamucil 2 caps or tablespoons, titrate to tid. If no improvement, will start Linzess or Trulance next visit. - Counseled regarding low gas diet. - Ok to continue probiotic as she does not a benefit. TSH elevation 02/10/2019 10/13/2020 Assessment & Plan (07/18/2020 10:50 PM CORPORATE LEGAL INTERN): Clinically euthyroid. Subclinical hypothyroidism. - CTM qyear with Dr. Childers Assessment & Plan (07/12/2020 10:45 AM CORPORATE LEGAL INTERN): Clinically euthyroid, but needs repeat labs. With [...] workup. Assessment & Plan (10/13/2019 5:01 PM CORPORATE LEGAL INTERN): Noted in [address] urography and cystoscopy. Last UA done in 2018 without hematuria. - Needs POC UA next appointment. Encounters Date Type Department Care Team Description 05/21/2025 Results Follow-Up [facility] Medicine Endocrinology Metabolism and Lipid [address] [place] [address] [place] [address] Cheli Morrison RMA Screening Mammogram Right W Cole Unilateral Only 05/21/[address] [facility] Medicine Endocrinology Metabolism and Lipid [address] [place] [address] [place] [address] Alida Childers MD 05/17/2025 Telephone [facility]id [address] [place] [address] [place] [address] Minna Saavedra RN Zebpound denail- need for LMN 05/13/2025 11:40 AM CDT Telemedicine [facility] and Lipid [address] [place] [address] [place] [address] Alida Childers MD Tam's thyroiditis (Primary Dx); Pure hypercholesterolemia; Weight gain 05/13/2025 Telephone [facility] and Lipid [address] [place] [address] [place] [address] Cheli Morrison RMA Prior Auth (Zepbound 2.5mg) 05/13/2025 Telephone [facility] and Lipid [address] [place] [address] [place] [address] Reshma Adams RN encourage to complete e check in for todays tele visit appt 04/30/2025 Orders Only [facility] Juan Dawn MD Neck pain on left side 04/30/2025 Telephone [facility] [address] [place] [address] Office [facility] [address] [place] [phone] Juan Dawn MD 04/13/2025 8:31 AM CDT - 04/13/2025 11:59 PM CDT Hospital Encounter [facility] [address] [place] [address] Discharge Disposition: Discharge to home or self care 04/13/2025 8:20 AM CDT Office Visit [facility] [address] [place] [address] [address] [place] [address] Juan Dawn MD Neck pain on left side (Primary Dx); Chronic left-sided low back pain without sciatica 04/06/2025 1:19 PM CDT - 04/06/2025 11:59 PM CDT Hospital Encounter [address] [address] Neck pain Discharge Disposition: Discharge to home or self care 03/31/2025 2:00 PM CDT Office Visit [facility] [address] [place] [address] Khloe He, MORENA Diarrhea, unspecified type (Primary Dx); Abdominal cramping; Nausea 03/31/2025 Results Follow-Up [facility] [address] [place] [address] [address] [place] [address] Khloe He NP Comprehensive metabolic panel 03/30/2025 Results Follow-Up [facility] at [address] [address] Kylie Spence NP Influenza A/B, RSV, and COVID-19 PCR Nasopharyngeal, Vaginitis panel Vaginal, Throat culture Throat, Urine culture Urine, clean voided 03/29/2025 6:45 PM CDT Office Visit [facility] at [address] [phone] Kylie Spence NP UTI symptoms (Primary Dx); Nasopharyngitis acute; Acute cough 03/29/2025 6:27 PM CDT - 03/29/2025 11:59 PM CDT Hospital Encounter [address] [address] Nasopharyngitis acute; UTI symptoms Discharge Disposition: Discharge to home or self care 03/26/2025 8:53 AM CDT - 03/26/2025 11:59 PM CDT Hospital Encounter [facility] [address] [address] Elevated blood pressure reading Discharge Disposition: Discharge [...] on file Legal Sex Female 7:09 PM CORPORATE LEGAL INTERN Gender Identity Female 06/25/2022 2:42 PM CORPORATE LEGAL INTERN Sexual Orientation Straight 06/25/2022 2: 42 PM CORPORATE LEGAL INTERN Occupation Industry Job Start Date Job End [...] HEPATITIS C ANTIBODY Routine 10/13/2020 11:14 AM CORPORATE LEGAL INTERN Routine general medical examination at a health [...] N/A Magnetic Resonan ce Juan Dawn MD [facility] [place] PROCEDURES Final Result * Neuro CT Outside Reference (04/13/2025 8:31 AM CDT) Impressions [facility] - 04/13/2025 8:31 AM CDT These images are for Reference purposes only and have not been reviewed by [facility]. There will be no report generated by a [facility] Radiologist. Narrative [facility] - 04/13/2025 8:31 AM CDT EXAMINATION: Images For Reference Purposes Only Juan Dawn MD [facility] [place] PROCEDURES Final Result [facility] * XR [...] and mild anterolisthesis of C6 on C7. Helc-hx-wbprmkrc intervertebral disc height loss with endplate degenerative changes favoring C5-C6 and to a lesser extent at C3-C4, C4-C5 and C6-C7. Uncovertebral spurring and facet arthropathy with varying degrees of bilateral osseous neural foraminal stenosis, most noticeable at C5-C6 and C6-C7. No significant prevertebral soft tissue swelling. IMPRESSION: Hyzl-su-nxjaarnh cervical spine degenerative changes as above. THIS IS AN ELECTRONICALLY VERIFIED FINAL REPORT 04/15/2025 3:28 PM - Electronically signed by Howard Reilly D.O. AP T: Report ID: [id number] Reading Location: [id number] Procedure Note Howard Reilly, - 04/15/2025 EXAM DESCRIPTION: XR SPINE CERVICAL COMPLETE 4 OR 5 VW REASON FOR STUDY: chronic neck pain Chronic Neck pain, nki, bilat leg pain TECHNIQUE: Frontal, lateral and bilateral oblique radiographic view(s) ofthe cervical spine. COMPARISON: None available. FINDINGS: There is mild retrolisthesis of C5 on C6 and mildanterolisthesis of C6 on C7. Omjf-ce-vztwqsmg intervertebral disc height loss with endplate degenerative changes favoring C5-C6 and to a lesser extent at C3-C4, C4-C5and C6-C7. Uncovertebral spurring and facet arthropathy with varying degreesof bilateral osseous neural foraminal stenosis, most noticeable at C5-C6 and C6-C7. No significant prevertebral soft tissue swelling. IMPRESSION: Pxwt-fi-ayqjunal cervical spine degenerative changes as above. THIS IS AN ELECTRONICALLY VERIFIED FINAL REPORT 04/15/2025 3:28 PM - Electronically signed by Howard Reilly D.O. AP T: Report ID: [id number] Reading Location: [id number] Hamzah Scott MD IMG XR PROCEDURES Gricelda [...] 9:36 AM CDT Performed at: 01 - [address] [id number] Airframe Technical Officer: Yannick Paul PhD, Phone: [phone] us Khloe He NP LAB MICROBIOLOGY - [...] CDT 03/31/2025 2:55 PM CDT Khloe He [facility] LAB BLOOD ORDERABLES F inal Result [facility] [address] [address] * (ABNORMAL) Comprehensive metabolic panel (03/31/2025 2:34 PM CDT) Pathologist [facility] Glucose 103 74 - 200 mg/dL [...] ORDERABLES F inal Result [facility] [address] [facility] [address] [address], [facility] * Influenza A/B, RSV, and COVID-19 PCR Nasopharyngeal (03/29/2025 6:27 PM CDT) COVID-19 RNA Negative Negative Influenza A RNA Negative Negative [facility] Influenza B RNA Negative Negative [facility] RSV RNA Negative Negative [facility] Comment: Interpretive data: Testing performed by [facility]. This test is performed using the [employer] Xpert Xpress CoV-2/Flu/RSV plus assay. This is a multiplex, real-time reverse transcriptase PCR assay intended for the qualitative detection of nucleic acid from SARS-CoV-2, influenza A, influenza B, and respiratory syncytial virus. This assay has been cleared by the [place] Food and Drug administration. The performance characteristics have been verified by the [facility]. Results must be considered in the clinical context, and a negative result does not rule out infection. Interpretive Data last revised 2023 Nasopharyngeal 03/29/2025 6: 27 PM CDT 03/29/2025 8:44 PM CDT Narrative [facility] - 03/29/2025 9:40 PM CDT Is the Patient experiencing symptoms consistent with COVID?->Yes Reason for testing?->Symptomatic Kylie Spence NP LAB MICROBIOLOGY - GENERAL ORD ERABLES Final Result Performing Organization Address [facility]/ZIP Co de Phone Number [facility] [address] Department of Laboratories [place], [place] [id number] * Vaginitis panel Vaginal (03/29/2025 6:27 PM CDT) Bacterial Vaginosis Not Detected Not Detected Comment:A negative result do es not preclude a possible infection. Results should be considered in conjunction with clinical presentation to determine the disease status. Cassia group Not Detected Not Detected [facility] Cassia glabrata/ krusei Not Detected Not Detected [facility] Trichomonas DNA Not Detected Not Detected [facility] Vaginal 03/29/2025 6:27 PM CDT 03/29/2025 8:44 PM CDT Narrative [facility] - 03/29/2025 10:40 PM CDT The CepLVL6id Xpert Xpress MVP test detects DNA targets [...] this test have been verified by the [facility]. Kylie Spence NP LAB MICROBIOLOGY - GENERAL ORD ERABLES Final Result Performing Organization Address City/[facility] Co de Phone Number TATIANAJULIO CESAR [address] Department of [employer] [place] [address] [place] * Urine culture Urine, clean voided (03/29/2025 6:27 PM CDT) Report Final Report: Less than 100,000 colonies/mL (clinically insignificant growth based on current clinical standards) Comment:Testing performed by : [facility], [address] [place]., [address] Organism (CLINICALLY INSIGNIFICANT GROWTH [facility] Urine, clean voided 03/29/2025 6:27 PM CDT 03/30/2025 12:07 AM CDT Narrative [facility] - 03/31/2025 7:48 AM CDT Testing performed by [facility] Microbiology Laboratory ([phone]) Kylie Spence NP LAB MICROBIOLOGY - GENERAL ORD ERABLES Final Result Performing Organization Address City/[facility]/ZIP Co de Phone Number [facility] [address] Department [employer] [place] [address] * Throat culture Throat (03/29/2025 6:27 PM CDT) Report Final Report: No growth of pathogens. Comment:Testing performed by : [facility], [address] [facility], [place]., [address] Throat 03/29/2025 6:27 PM CDT 03/30/2025 12:07 AM CDT Narrative [facility] - 03/30/2025 7:12 PM CDT Testing performed by [facility]biology Laboratory ([phone]). us Kylie Spence NP LAB MICROBIOLOGY - GENERAL ORD ERABLES Final Result [facility] [address] Department [place] [address] * POC Influenza A/B, COVID-19 antigen (03/29/2025 6:13 PM CDT) Influenza A Ag, POC Negative Negative [facility] EDW Influenza B Ag, POC Negative Negative [facility] COVID-19 Ag POC Presumptive Negative Presumptive Negative, Invalid [facility] Nasal 03/29/2025 6:13 PM CDT us Kylie Spence [facility] POINT OF CARE TEST ORDERABLES Final Result Performing Organization Address [facility]/ZIP Co de Phone Number [facility] CC EDW [address] [place] [address] * POCT rapid strep A (03/29/2025 6:13 [...] Negative Ketones, ur, POC Negative Negative Specific [place], POC 1.020 1.003 - 1.030 Blood, ur, POC Small(A) Negative pH, ur, POC 6.0 5.0 - 8.0 Protein, ur, POC Negative Negative Urobilinogen, urine, POC 0.2 0.2 - 1.0 mg/dL Nitrite, ur, POC Negative Negative Leukocytes, ur, POC Negative Negative Lot Number [id number] Urine 03/29/2025 6:08 PM CDT Result [facility] Kylie Spence NP POINT OF CARE TEST ORDERABLES Final Result * 24 hour Blood Pressure Monitor (03/26/2025 8:55 AM CDT) [facility] Max Systolic Blood Pressure 140 SENTINEL Systolic [...] Result Comments Result Comments Result Comments Result [facility] Hamzah Scott MD CV CARDIAC SERVICES ID OCEDURES Final Result * Hepatitis C antibody (10/13/2020 11:14 AM CORPORATE LEGAL INTERN) [facility] Hep C Ab NON-REACTI VE NON-REACT DE [facility] SIGNAL TO CUT-OFF 0.06 <1.00 [facility] Comment: HCV antibody was non-reactive. There is no laboratory evidence of HCV infection. In most cases, no further action is required. However, if recent HCV exposure is suspected, a test for HCV RNA (test code 35158) is suggested. For additional information please refer to http://education.[employer]/faq/EPR57i2 (This link is being provided for informational/ educational purposes only.) Blood specimen (specimen) 10/13/2020 11:14 AM CORPORATE LEGAL INTERN 10/14/2020 4:50 AM CORPORATE LEGAL INTERN Ara Milton MD LAB MICROBIOLOGY - GEN ERAL ORDERABLES Final Result Performing Organization Address City/State/[facility] Phone Number [facility] [address] [place] [address] from Last 3 Months or Most Recently Relevant to Health Maintenance Insurance [facility] [place] [address] [employer] [facility] Care Teams Director Of Government Sales Relationship Specialty Start Date End Date Hamzah Scott MD [address] [place] [address] [address] [place] [address] PCP - General Internal Medicine 08/01/23 Moncho George MD [address] [employer] [phone] Consulting Physician Obstetrics and Gynecology 06/25/22 Alida Childers MD [address] [place] [phone] Referring Physician Endocrinology Diabetes & Metabolism 06/25/22 Moncho Henderson MD [address] [place] [address] [address] [place] [address] Referring Physician Cardiovascular Disease 06/25/22
--- OUTSIDE RECORDS SUMMARY | 2025-06-16 07:52 | XMS_ITS | Encounter Summary ---
Author Organization [facility] Address [address] [place] [address] Phone Care Team Providers Care Centrifugal Separator Name Role Phone Ara Milton MD Primary Care Provider Monhco George MD Unavailable [phone] Alida hCilders MD Unavailable [phone] Moncho Henderson MD Unavailable [phone] Hamzah Scott MD Primary Care Provider Encounter Details Date Type Department Care Team (Late st Contact Info) Description 08/24/2021 Orders Only [facility] [address] [place] [address] Scanning, Provider Social History Tobacco [...] on file Legal Sex Female 7:09 PM REPAIRER HELPER Gender Identity Female 06/25/2022 2:42 PM REPAIRER HELPER Sexual Orientation Straight 06/25/2022 2: 42 PM REPAIRER HELPER 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 Not on file Not on file documented as of this encounter Plan of Treatment Not on file documented as of this encounter Procedures Procedure Name Priority Date/Time Associated Diagnosis Comments SCAN - RADIOLOGY/IMAGING 08/24/2021 4:11 PM REPAIRER HELPER documented in this encounter Results * SCAN - RADIOLOGY/IMAGING (08/24/2021 4:11 PM REPAIRER HELPER) Anatomical Region Laterality Modality Other us Provider Scanning Final Result documented in this encounter Visit Diagnoses Not on filedocumented in this encounter Additional Health Concerns Infection Onset Date Last Indicated Resolved Time COVID: Suspected 08/28/2021 08/28/2021 08/29/2021 2:46 AM REPAIRER HELPER COVID: Suspected 03/29/2025 03/29/2025 03/29/2025 6:14 PM CDT COVID: Suspected 03/29/2025 03/29/2025 03/29/2025 9:41 PM CDT documented as of this encounter Care Teams Centrifugal Separator Relationship Specialty Start Date End Date Ara Milton MD [address] [place] [address] PCP - General Internal Medicine 10/01/19 07/31/23 Hamzah Scott MD [address] [facility] [address] [place] [address] PCP - General Internal Medicine 08/01/23 Moncho George MD [address] [facility] [address] [place] [address] Consulting Physician Obstetrics and Gynecology 06/25/22 Alida Childers MD [address] [facility] [address] [place] [address] Referring Physician Endocrinology Diabetes & Metabolism 06/25/22 Moncho Henderson MD [address] [facility] [address] [place] [address] Referring Physician Cardiovascular Disease 06/25/22 documented as of this encounter
--- OUTSIDE RECORDS SUMMARY | 2025-06-16 07:52 | XMS_ITS | Encounter Summary ---
Author Organization [facility] Address [address] [place] [address] Phone Care Team Providers Care Jewel Hole Driller Name Role Phone Ara Milton MD Primary Care Provider Moncho George MD Unavailable [phone] Alida Childers MD Unavailable [phone] Moncho Henderson MD Unavailable [phone] Hamzah Scott MD Primary Care Provider [...] on file Legal Sex Female 7:09 PM TUBE DRAW HELPER Gender Identity Female 06/25/2022 2:42 PM TUBE DRAW HELPER Sexual Orientation Straight 06/25/2022 2: 42 PM TUBE DRAW HELPER Occupation Industry Job Start Date Job [...] documented as of this encounter Care Teams Jewel Hole Driller Relationship Specialty Start Date End Date Ara Milton MD [address] [place] [address] PCP - General Internal Medicine 10/01/19 07/31/23 Hamzah Scott MD [address] [place] [address] PCP - General Internal Medicine 08/01/23 Moncho George MD [address] [address] Consulting Physician Obstetrics and Gynecology 06/25/22 Alida Childers MD [address] [address] Referring Physician Endocrinology Diabetes & Metabolism 06/25/22 Moncho Henderson MD [address] [place] [address] [address] [place], [place] [id number] Referring Physician Cardiovascular Disease 06/25/22 documented as of this encounter
--- OUTSIDE RECORDS SUMMARY | 2025-06-16 07:52 | XMS_ITS | Encounter Summary ---
Author Organization [facility] Address [address] [place] [address] Phone Care Team Providers Care Biology Tutor Name Role Phone Moncho George MD Unavailable [phone] Alida Childers MD Unavailable [phone] Moncho Henderson MD Unavailable Hamzah Scott MD Primary Care Provider Encounter Details Date Type Department Care Team (Latest Contact Info) Description 05/21/2025 Results Follow-Up [facility] Endocrinology Metabolism and Lipid [address] [facility] Medicine 13th [place] [address] [place] [address] Cheli Morrison RMA Screening Mammogram [...] on file Legal Sex Female 7:09 PM DIRECTOR OF VOCATIONAL TRAINING Gender Identity Female 06/25/2022 2:42 PM DIRECTOR OF VOCATIONAL TRAINING Sexual Orientation Straight 06/25/2022 2: 42 PM DIRECTOR OF VOCATIONAL TRAINING 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 Not on file Not on file documented as of this encounter Plan of Treatment Not on file documented as of this encounter Visit Diagnoses Not on filedocumented in this encounter Care Teams Biology Tutor Relationship Specialty Start Date End Date Hamzah Scott MD [address] [place] [address] PCP - General Internal Medicine 08/01/23 Moncho George MD [address] [address] Consulting Physician Obstetrics and Gynecology 06/25/22 Alida Childers MD [address] [address] Referring Physician Endocrinology Diabetes & Metabolism 06/25/22 Moncho Henderson MD [address] [place] [address] Referring Physician Cardiovascular Disease 06/25/22 documented as of this encounter
--- OUTSIDE RECORDS SUMMARY | 2025-06-16 07:52 | XMS_ITS | Clinical Summary ---
Author Organization [facility] Address [address] [place] [address] Phone Care Team Providers Care Assistant Chief Of Police Name Role Phone Ara Milton MD Primary [...] PAP (11/05/2024 12:00 AM CDT) COMMENT (PAP): [facility] [place] Comment: This order for age-based cervical cancer and STI screening follows ACOG guidelines(PB 168, 140, EOJ311). See individual assays for performing site location. CLINICAL INFORMATION [facility] [place] Comment:None given LAST MENSTRUAL PERIOD [facility] [place] Comment:NONE GIVEN PREV PAP: [facility] [place] Comment:NONE GIVEN PREV BX: [facility] [place] Comment:NONE GIVEN SOURCE [facility] [place] Comment:Endocervix ADEQUACY: [facility] [place] Comment: Satisfactory for evaluation. Endocervical/transformation zone component present. Age and/or menstrual status not provided PAP INTERP [facility] [place] Comment: Cytology Results: Negative for intraepithelial lesion or malignancy. COMMENT (PAP TEST) [facility] [place] Comment: This Pap test has been evaluated with computer assisted technology. PROOF OPERATOR: [facility] [place] Comment: TLS, CT(ASCP) CT Screening Location: [place] [address] EXPLANATORY NOTE [facility] [place] Comment: EXPLANATORY NOTE: The Pap is [...] information. HPV E6/E7 Not Detected Not Detected [facility] [place] Comment: Methodology: Medical Billing Clerk-Mediated Amplification This assay detects E6/E7 viral messenger RNA (mRNA) from 14 high-risk HPV types (16,18,31,33,35,39,45,51,52,56,58,59,66,68). Cervical sources are required for HPV testing. If a vaginal source from a patient who has had a total hysterectomy with removal of cervix was submitted, please contact the testing laboratory for alternative testing options. For additional information, please refer to http://education.Kamcord/faq/XOB574e2 (This link if provided for information/ educational purposes only.) Test [facility]formed [facility]: [facility] [address] [place] [address] Aidan Hudson MD SL Genital SWAB OF ENDOCERVIX / Unknown 11/05/2024 11/05/2024 11:41 PM CDT Moncho George MD PATHOLOGY/CYTOLOGY ORDERABLES Fi nal Result [facility] [phone] [facility] [address] * MAMMO SCRN BILAT 3D [place] W OR WO CAD (05/12/2020) Anatomical Region Laterality Modality Breast Bilateral Mammography Moncho George MD MAMMO ORDERABLES Final Result from Last 3 Months or Most Recently Relevant to Health Maintenance Insurance [employer] CHOICE POS II Care Teams Assistant Chief Of Police Relationship Specialty Start Date End Date Ara Milton MD PCP - General Internal Medicine 03/03/20
[2025-06-16 07:56] LABS: Hematocrit 43.3 % (37.0-47.0); Hemoglobin 14.6 g/dL (12.0-15.0); Immature Granulocyte Percent A 0.2 % (0-0.5); Lymphocytes Absolute Auto 2.71 K/mm3 (0.9-3.2); Mean Corpuscular HGB Conc 33.7 g/dl (32-36); Mean Corpuscular Hemoglobin 30.7 pg (26-34); Mean Corpuscular Volume 91.2 fl (80-100); Nucleated Red Blood Cells Absolute Auto 0.000 K/mm3 (0.0-0.012); Nucleated Red Blood Cells Perc 0.0 % (0.0-0.2); Platelet Count Result 291 k/mm3 (150-375); Red Blood Count 4.75 M/mm3 (4.2-5.4); White Blood Count 8.4 K/mm3 (4.5-10.0)
[2025-06-16] MEDS: SODIUM CHLORIDE 0.9% IV 1,000 ML 999 ML IV CONT (08:02)
[2025-06-16 08:04] LABS: Alanine Aminotransferase 18 U/L (6-35); Albumin Level 4.7 g/dL (3.5-5.1); Alkaline Phosphatase 57 U/L (38-126); Anion Gap 8 mmol/L (4-12); Aspartate Amino Transferase 34 U/L (14-36); Bilirubin,Total 0.5 mg/dL (0.2-1.3); Blood Urea Nitrogen 19 mg/dL (7-17); Calcium 9.2 mg/dL (8.4-10.2); Carbon Dioxide 26 mmol/L (22-30); Chloride 102 mmol/L (98-107); Estimated CRCL calculation 65 ml/min; Estimated Glomerular Filt Rate > 60; Glucose 85 mg/dL (65-110); Potassium 3.9 mmol/L (3.4-5.0); Sodium 136 mmol/L (137-145); Total Protein 8.4 g/dL (6.3-8.2)
--- NOTE | 2025-06-16 09:36 | ED.ARRPALP ---
HPI - Arrhythmia/Palpitations General Chief Complaint: Arrhythmia/Palpitations Stated Complaint: palpitations, shakines, nauseous, dizzy Time Seen by Provider: 06/16/25 07:18 Source: patient Mode of arrival: ambulatory Limitations: no limitations History of Present Illness HPI narrative: 54-year-old with a history of anxiety disorder, presents to the ER with a complains of sudden onset of palpitation, feeling lightheaded. Patient states that she is taking Zep bound for weight loss . she states she is not eating well ,peroidically gets a shaky feeling . Duration: constant Context: occurred during rest Associated symptoms: denies other symptoms Related Data Home Medications ?Medication ?Instructions ?Recorded ?Confirmed ?Last Taken ?Type sertraline 100 mg tablet 100 mg PO DAILY 06/24/19 03/31/21 Unknown History linaclotide 145 mcg capsule 145 mcg PO DAILY 03/31/21 03/31/21 Unknown History (Linzess) lorazepam 0.5 mg tablet 0.5 mg PO DAILY PRN Anxiety 03/31/21 03/31/21 Unknown History pravastatin 10 mg tablet 10 mg PO DAILY 03/31/21 03/31/21 Unknown History Allergies Allergy/AdvReac Type Severity Reaction Status Date / Time erythromycin base AdvReac Intermediate Nausea Verified 06/16/25 06:18 Review of Systems Review of Systems: All systems reviewed & are unremarkable except as noted in HPI and below Constitutional: Constitutional: Reports no additional constitutional complaints Eyes: Eyes: Reports no additional eye complaints ENT: Reports system reviewed and no additional complaints, except as documented Cardiovascular: Cardiovascular: Reports as per HPI Respiratory: Respiratory: Reports no additional respiratory complaints Gastrointestinal: Gastrointestinal: Reports no additional gastrointestinal complaints Musculoskeletal: Musculoskeletal: Reports no additional musculoskeletal complaints PMFSH Past Medical History Medical History Anxiety Hyperlipidemia Social History Social History Smoking status: Never smoker Substance use: current Gender identity (if verbalized by the patient): Female Exam Narrative: GENERAL: Well-appearing, well-nourished, and in no acute distress. HEAD: Normocephalic, atraumatic. EYES: PERRLA and EOMI. ENT: Nares clear, no rhinorrhea or epistaxis. Mucous membranes moist. NECK: Supple. CHEST: Clear to auscultation. No respiratory distress. HEART: Regular rate and rhythm. No murmur heard. Normal peripheral pulses. ABDOMEN: Soft, nontender, nondistended, normal active bowel sounds. EXTREMITIES: Normal range of motion. No edema. SKIN: Warm, dry, no rash. NEURO: No focal deficits. Alert and oriented x3. PSYCH: Normal mood and affect. Course Course Emergency Course: Informed her about the EKG findings , did give her IV fluids obtain lab work which was unremarkable. Advised her to continue home medication, follow with the primary doctor she wants something for anxiety will give Vistaril. Vital Signs Vital signs: Vital Signs Temperature 36.8 C 06/16/25 06:28 Pulse Rate 76 06/16/25 06:28 Respiratory Rate 16 06/16/25 06:28 Blood Pressure 139/74 06/16/25 06:28 Pulse Oximetry 99 06/16/25 06:28 Temperature 36.8 C 06/16/25 06:28 Pulse Rate 70 06/16/25 09:53 Respiratory Rate 13 06/16/25 09:53 Blood Pressure 124/64 06/16/25 09:53 Pulse Oximetry 98 06/16/25 09:53 MDM - Arrhythmia/Palpitations Lab Data 06/16/25 07:05 06/16/25 07:05 Labs: Lab Results 06/16/25 06/16/25 Range/Units 07:05 07:07 WBC 8.4 (4.5-10.0) K/mm3 RBC 4.75 (4.2-5.4) M/mm3 Hgb 14.6 (12.0-15.0) g/dL Hct 43.3 (37.0-47.0) % MCV 91.2 (80-100) fl MCH 30.7 (26-34) pg MCHC 33.7 (32-36) g/dl RDW 12.6 (11.5-14.5) % Plt Count 291 (150-375) k/mm3 MPV 9.3 (7.4-10.4) fl Immature Gran % (Auto) 0.2 (0-0.5) % Neut % (Auto) 56.6 (45.5-73.1) % Lymph % (Auto) 32.1 (18.3-44.2) % Greenwood % (Auto) 8.6 H (2.6-8.5) % Eos % (Auto) 1.8 (0-4.4) % Baso % (Auto) 0.7 (0.2-1.2) % Lymph # (Auto) 2.71 (0.9-3.2) K/mm3 Greenwood # (Auto) 0.7 H (0.1-0.6) K/mm3 Eos # (Auto) 0.2 (0-0.3) K/mm3 Baso # (Auto) 0.1 (0.0-0.1) K/mm3 Abs Immat Gran (auto) 0.02 (0.00-0.031) K/mm3 Absolute Neuts (auto) 4.8 (1.3-6.7) K/mm3 Absolute Nucleated RBC 0.000 (0.0-0.012) K/mm3 Nucleated RBC % 0.0 (0.0-0.2) % Sodium 136 L (137-145) mmol/L Potassium 3.9 (3.4-5.0) mmol/L Chloride 102 (98-107) mmol/L Carbon Dioxide 26 (22-30) mmol/L Anion Gap 8 (4-12) mmol/L BUN 19 H (7-17) mg/dL Creatinine 0.84 (0.7-1.0) mg/dL Estim Creat Clear Calc 65 ml/min Estimated GFR > 60 (59 - ) Glucose 85 (65-110) mg/dL POC Capillary Glucose 100 (65-105) mg/dl Calcium 9.2 (8.4-10.2) mg/dL Total Bilirubin 0.5 (0.2-1.3) mg/dL AST 34 (14-36) U/L ALT 18 (6-35) U/L Alkaline Phosphatase 57 (38-126) U/L Total Protein 8.4 H (6.3-8.2) g/dL Albumin 4.7 (3.5-5.1) g/dL ECG Data EKG #1: ECG completion date: 06/16/25 ECG completion time: 06:32 EKG Interpretation: normal rate (74), no ectopy, no ST changes, normal QRS and normal QT Discharge Plan Discharge Clinical Impression: Palpitations, Anxiety Patient Disposition: Home Condition: Stable Instructions: Heart Palpitations (ED), Anxiety (ED) Additional Instructions: continue home medication , follow with your doctor Patient Language: Tamazight Prescriptions: New hydroxyzine HCl 25 mg tablet 25 mg PO TID PRN (Reason: anxiety) Qty: 30 0RF No Action lorazepam 0.5 mg tablet 0.5 mg PO DAILY PRN (Reason: Anxiety) pravastatin 10 mg tablet 10 mg PO DAILY Linzess 145 mcg capsule 145 mcg PO DAILY sulfamethoxazole-trimethoprim [Bactrim DS] 800-160 mg tablet 1 tablet PO Q12H 3 Days Qty: 6 0RF sertraline 100 mg Tablet 100 mg PO DAILY Follow-up/Referrals: Scott,Hamzah Montana MD [Primary Care Provider] Time of Disposition: 09:39
[2025-06-16 09:53] VITALS: BP 124/64; PULSE 70; RESP 13; O2SAT 98
== END 2025-06-16 10:00 | disposition home or self-care (01) ==
PROVIDERS: Emergency Provider Family Medicine; PCP Internal Medicine
DX: R00.2 Palpitations (principal); F41.9 Anxiety disorder, unspecified; E78.5 Hyperlipidemia, unspecified; R94.31 Abnormal electrocardiogram [ECG] [EKG]; Z79.899 Other long term (current) drug therapy
CPT/HCPCS: 36415; 80053; 82948; 85025; 93005; 96360; 99283; J7030

== ENCOUNTER 2025-08-03 16:12 | Outpatient (CLI) | payer OTHER, SELFPAY ==
--- NOTE | ~2025-08-03 | US_ITS ---
EXAMINATION: US thyroid DATE: 08/03/2025 16:52 INDICATION: Tam's thyroiditis TECHNIQUE: Multiple ultrasound images of the thyroid were obtained. COMPARISON: None. FINDINGS: The right thyroid lobe measures 5.0 x 2.3 x 1.7 cm. The left thyroid lobe measures 4.9 x 2.1 x 1.9 cm. There is heterogeneous echogenicity and coarsened echotexture throughout the thyroid lobes with multiple hypoechoic pseudo nodules typical for Tam's thyroiditis. There is a 3 mm echogenic and shadowing coarse calcification within the right thyroid lobe. There is normal echotexture, echogenicity and vascular flow throughout the thyroid gland. IMPRESSION: 1. Mildly enlarged heterogeneous appearing thyroid with coarsened echotexture and hypoechoic pseudo-nodules typical of Tam thyroiditis. Reviewed, dictated and finalized at location A. [facility] MOTORCYCLE PAINTER IMPRESSION: 1. Mildly enlarged heterogeneous appearing thyroid with coarsened echotexture a nd hypoechoic pseudo-nodules typical of Tam thyroiditis.
--- OUTSIDE RECORDS SUMMARY | 2025-08-03 18:04 | XMS_ITS | Encounter Summary ---
Author Organization [facility] Address [address] [place] [address] Care Team Providers Care Shoer Name Role Phone Ara Milton MD Primary Care Provider Encounter Details Date Type Department Care Team (Latest Contact Info) Description 08/25/2002 Inpatient Historical HIS PATIENT IN A BED Moncho George MD [address] [place] [phone] UTERINE INERT NEC-DELIVERED (Primary Dx) Social History [...] Primary documented in this encounter Care Teams Shoer Relationship Specialty Start Date End Date Ara Milton MD PCP - General Internal Medicine 03/03/20 documented as of this encounter
--- OUTSIDE RECORDS SUMMARY | 2025-08-03 18:04 | XMS_ITS | Encounter Summary ---
Author Organization [facility] Address [address] [place] [address] Phone Care Team Providers Care Dinkey Motor Operator Name Role Phone Ara Milton MD Primary Care Provider Moncho George MD Unavailable [phone] Alida Childers MD Unavailable [phone] Moncho Henderson MD Unavailable [phone] Hamzah Scott MD Primary Care Provider Encounter Details Date Type Department Care Team (Late st Contact Info) Description 01/09/2021 Telephone [facility] [address] [place] [address] Ara Milton MD [address] [place] [address] Social History Tobacco Use Types [...] on file Legal Sex Female 7:09 PM END TOUCHING MACHINE OPERATOR Gender Identity Female 06/25/2022 2:42 PM END TOUCHING MACHINE OPERATOR Sexual Orientation Straight 06/25/2022 2: 42 PM END TOUCHING MACHINE OPERATOR 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 Not on file Not on file documented as of this encounter Plan of Treatment Not on file documented as of this encounter Visit Diagnoses Not on filedocumented in this encounter Additional Health Concerns Infection Onset Date Last Indicated Resolved Time COVID: Suspected 08/28/2021 08/28/2021 08/29/2021 2:46 AM END TOUCHING MACHINE OPERATOR COVID: Suspected 03/29/2025 03/29/2025 03/29/2025 6:14 PM CDT COVID: Suspected 03/29/2025 03/29/2025 03/29/2025 9:41 PM CDT documented as of this encounter Care Teams Dinkey Motor Operator Relationship Specialty Start Date End Date Aar Milton MD [address] [place] [address] PCP - General Internal Medicine 10/01/19 07/31/23 Hamzah Scott MD [address] [place] [address] PCP - General Internal Medicine 08/01/23 Moncho George MD [address] [address] Consulting Physician Obstetrics and Gynecology 06/25/22 Alida Childers MD [address] [address] Referring Physician Endocrinology Diabetes & Metabolism 06/25/22 Moncho Henderson MD [address] [facility] [address] [address] [place] [address] Referring Physician Cardiovascular Disease 06/25/22 documented as of this encounter
--- OUTSIDE RECORDS SUMMARY | 2025-08-03 18:04 | XMS_ITS | Clinical Summary ---
Author Organization [facility] Address [address] [place] [address] Care Team Providers Care Grease Machine Worker Name Role Phone Moncho George MD Unavailable [phone] Alida Childers MD Unavailable [phone] Moncho Henderson MD Unavailable [phone] Hamzah Scott MD Primary Care Provider [...] 07/01/2024 Assessment & Plan (07/01/2024 4:03 PM LINING SCRUBBER): suspect change in weather/ stress / environment all causing the itching/ burning sensation on the skin will currently treat like eczema with hydration/ topical cream and if not better patient will let us know in a few weeks or if she has any other significant changes or questions Elevated blood pressure read ing without diagnosis of hypertension 06/25/2023 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 Assessment & Plan (05/13/2025 7:03 PM CDT): [...] time Assessment & Plan (06/25/2023 1:43 PM LINING SCRUBBER): With mild hypothyroidism; increasing estrogen and progesterone supplements so would benefit from starting low-dose levothyroxine Weight gain 06/25/2022 Assessment & Plan (05/13/2025 7:00 PM CDT): Difficulty with management, despite diet and lifestyle. Postmenopausal 06/25/2022 Overview (06/25/2023): Images from the original note were not included. DEXA 07/27/22: Assessment & Plan (06/27/2023 8:13 PM LINING SCRUBBER): Being managed by her other doctors. HRT supplementation likely to affect thyroid metabolism Assessment & Plan (01/22/2023 9:02 PM CDT): We discussed r/b/a of HRT for menopausal sx. She will discuss further with her corncob pipes assembler Assessment & Plan (06/27/2022 12:58 PM LINING SCRUBBER): Not on estrogen therapy. Needs DEXA bone [...] Routine general medical exam ination at a [facility] facility 10/13/2020 Assessment & Plan (01/22/2023 9:16 [...] 2028 - Mammogram 12/2022 normal goes to [place] [place] - Pap: 02/2020 neg for RAQUEL and [...] 2022 - Mammogram 12/2021 normal goes to [facility] - Pap: 02/2020 neg for RAQUEL and [...] available. Assessment & Plan (10/13/2020 11:03 AM LINING SCRUBBER): - - Depression screen: PHQ Screening PHQ-2 Total Score (If total score is 3 or more points, staff should administer the PHQ-9): 2 PHQ-9 Total Score: 7 - A1c: normal - Lipids: see HLD - DEXA: refer at 65 yo - Colon cancer: hx of polyps, due 2022 - Mammogram 03/2020 and normal goes to [facility] - Pap: 02/2020 neg for RAQUEL and [...] activity Assessment & Plan (10/13/2020 9:07 PM LINING SCRUBBER): F/b Dr. Patiño in psychiatry. - Cont sertraline 150mg every day - lorazepam 0.5mg bid prn - cont therapy, regular physical activity Polyp of colon 10/13/2019 Assessment & Plan (10/13/2020 9:06 PM LINING SCRUBBER): Hx of adenomas, last cscope in 2016 with only diverticulosis so due for f/u in 2021 Assessment & Plan (10/13/2019 4:58 PM LINING SCRUBBER): Noted on cscope [id number], unclear type. - Requested records. Hyperlipidemia, unspecified 02/20/2019 Assessment & Plan (05/13/2025 6:56 PM CDT): Being managed by her trash collector truck driver, on rosuvastatin. Assessment & Plan (05/18/2024 7:14 PM CDT): Being managed by her trash collector truck driver, on rosuvastatin. Assessment & Plan (11/13/2023 8:37 PM CDT): Being managed by her trash collector truck driver, on rosuvastatin. Assessment & Plan (06/27/2023 8:12 PM LINING SCRUBBER): Being managed by her trash collector truck driver,.on rosuvastatin. Assessment & Plan (01/22/2023 9:00 PM [...] day Assessment & Plan (06/27/2022 12:58 PM LINING SCRUBBER): Being managed by her trash collector truck driver, and she is open to the idea of possibly increasing her dose of rosuvastatin. She will discuss with the Reports Analysis Manager Assessment & Plan (01/17/2022 9:44 PM CDT): Cont rosuvastatin 10mg every day Assessment & Plan (10/13/2020 9:04 PM LINING SCRUBBER): Most recent LDL 184, which has increased [...] cholesterol. Assessment & Plan (07/18/2020 10:50 PM LINING SCRUBBER): LDL 164. Her ASCVD is low enough that she does not need to start a statin, however if she would like to start red yeast rice or lovastatin due to her family history I am ok with this. - Counseled regarding diet to lower cholesterol. Assessment & Plan (07/12/2020 10:38 AM LINING SCRUBBER): She is currently working hard with diet [...] qyear. Assessment & Plan (10/13/2019 4:58 PM LINING SCRUBBER): 04/2019 Tchol 237, LDL 149, HDL 67, [...] 01/22/2023 Assessment & Plan (06/27/2022 12:58 PM LINING SCRUBBER): Delayed sleep latency. She would likely improved [...] 01/16/2022 Assessment & Plan (08/29/2021 8:44 PM LINING SCRUBBER): COVID negative. Sx are improving. - Rec nasal rinses bid, flonase 2 sprays every day. - Discussed clinical course and red flag sx. - Ok to return to prior routine since she is afebrile and feeling better. Palpitations 08/29/2021 01/17/2022 Assessment & Plan (08/29/2021 8:48 PM LINING SCRUBBER): Possibly cough-triggered. Recent TTE with her trash collector truck driver normal per pt. - CTM. If does not improve with cough, she will f/u with her trash collector truck driver. Strain of lumbar region 03/08/2020/2 12/2020 Assessment & Plan (03/08/2020 10:14 PM CDT): [...] now. Assessment & Plan (10/13/2020 9:05 PM LINING SCRUBBER): Most likely etiology of her bloating and [...] diet. Assessment & Plan (10/13/2019 4:57 PM LINING SCRUBBER): Most likely etiology of her bloating and constipation. - Requested GI records including EGD and cscope. - Cont metamucil 2 caps or tablespoons, titrate to tid. If no improvement, will start Linzess or Trulance next visit. - Counseled regarding low gas diet. - Ok to continue probiotic as she does not a benefit. TSH elevation 02/10/2019 10/13/2020 Assessment & Plan (07/18/2020 10:50 PM LINING SCRUBBER): Clinically euthyroid. Subclinical hypothyroidism. - CTM qyear with Dr. Childers Assessment & Plan (07/12/2020 10:45 AM LINING SCRUBBER): Clinically euthyroid, but needs repeat labs. With [...] workup. Assessment & Plan (10/13/2019 5:01 PM LINING SCRUBBER): Noted in [address] urography and cystoscopy. Last UA done in 2018 without hematuria. - Needs POC UA next appointment. Encounters Date Type Department Care Team Description 07/29/2025 Orders Only [facility] Medicine Endocrinology Metabolism and Lipid [address] [facility] 13th [place] [address] [place] [address] Alida Childers MD Tam's thyroiditis (Primary Dx) 07/29/2025 Telephone [facility] Endocrinology Metabolism and Lipid [address] [place] [phone] Cheli Morrison RMA Thyroid Concerns 05/21/2025 Results Follow-Up [facility] Endocrinology Metabolism and Lipid [address] [phone] Cheli Morrison RMA Screening Mammogram Right W Cole Unilateral Only 05/21/2025 Orders Only [facility] Endocrinology Metabolism and Lipid [address] [phone] Alida Childers MD 05/17/2025 Telephone [facility] Endocrinology Metabolism and Lipid [address] [phone] Minna Saavedra RN Zebpound denail- need for LMN 05/13/2025 11:40 AM CDT Telemedicine [facility] Endocrinology Metabolism and Lipid [address] [phone] Alida Childers MD Tam's thyroiditis (Primary Dx); Pure hypercholesterolemi a; Weight gain 05/13/2025 Telephone [facility] Endocrinology Metabolism and Lipid [address] [phone] Cheli Morrison RMA Prior Auth (Zepbound 2.5mg) 05/13/2025 Telephone [facility] Endocrinology Metabolism and Lipid [address] [phone] Reshma Adams RN encourage to complete e check in for todays tele visit appt from Last 3 Months Immunizations Immunization Administration [...] on file Legal Sex Female 7:09 PM LINING SCRUBBER Gender Identity Female 06/25/2022 2:42 PM LINING SCRUBBER Sexual Orientation Straight 06/25/2022 2: 42 PM LINING SCRUBBER 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 Not on file Not on file Last Filed Vital Signs [...] Routine (OP Routine) 05/21/2025 1:33 PM CDT HEPATITIS C ANTIBODY Routine 10/13/2020 11:14 AM LINING SCRUBBER Routine general medical examination at a health care facility from Last 3 Months or Most Recently Relevant to Health Maintenance Results * Screening Mammogram Right W Cole Unilateral Only (05/21/2025 1:33 PM CDT) Anatomical Region Laterality Modality Breast Right Mammography us Alida Childers MD IMG MAMMO PROCEDURES Final Result * Hepatitis C antibody (10/13/2020 11:14 AM LINING SCRUBBER) Hep C Ab NON-REACTI VE NON-REACT DE [facility] SIGNAL TO CUT-OFF 0.06 <1.00 [facility] Comment: HCV antibody was non-reactive. There is no laboratory evidence of HCV infection. In most cases, no further action is required. However, if recent HCV exposure is suspected, a test for HCV RNA (test code 39036) is suggested. For additional information please refer to http://education.neoSaej/faq/EMQ71x6 (This link is being provided for informational/ educational purposes only.) Blood specimen (specimen) 10/13/2020 11:14 AM LINING SCRUBBER 10/14/2020 4:50 AM LINING SCRUBBER us Ara Milton MD LAB MICROBIOLOGY - GEN ERAL ORDERABLES Final Result [facility] [address] [place] [address] from Last 3 Months or Most Recently Relevant to Health [place] [address] [employer] [facility] Care Teams Grease Machine Worker Relationship Specialty Start Date End Date Hamzah Scott MD [address] [place] [address] [place] [address] PCP - General Internal Medicine 08/01/23 Moncho George MD [address] [phone] Consulting Physician Obstetrics and Gynecology 06/25/22 Alida Childers MD [address] [phone] Referring Physician Endocrinology Diabetes & Metabolism 06/25/22 Moncho Henderson MD [address] [place] [address] [place] [address] Referring Physician Cardiovascular Disease 06/25/22
--- OUTSIDE RECORDS SUMMARY | 2025-08-03 18:04 | XMS_ITS | Encounter Summary ---
Author Organization [employer] Address [address] [place] [address] Care Team Providers Care Floor Nurse Name Role Phone Ara Milton MD Primary Care Provider Encounter Details Date Type Department Care Team (Late st Contact Info) Description 10/11/2005 Outpatient Historical HIS NUCLEAR MEDICINE STL Jacque Solares MD [address] [place] [address] PREMATURE BEATS NEC (Primary Dx) Social History [...] Primary documented in this encounter Care Teams Floor Nurse Relationship Specialty Start Date End Date Ara Milton MD PCP - General Internal Medicine 03/03/20 documented as of this encounter
--- OUTSIDE RECORDS SUMMARY | 2025-08-03 18:04 | XMS_ITS | Encounter Summary ---
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 Gender Identity Female 06/25/2022 2:42 PM BASE FILLER OPERATOR Sexual Orientation Straight 06/25/2022 2: 42 PM BASE FILLER OPERATOR Occupation Industry Job Start Date Job [...] documented as of this encounter Care Teams Firer Locomotive Relationship Specialty Start Date End Date Ara Milton MD [address] [place] [address] PCP - General Internal Medicine 10/01/19 07/31/23 Hamzah Scott MD [address] [place] [address] PCP - General Internal Medicine 08/01/23 Moncho George MD [address] [address] Consulting Physician Obstetrics and Gynecology 06/25/22 Alida Childers MD [address] [address] Referring Physician Endocrinology Diabetes & Metabolism 06/25/22 Moncho Henderson MD [address] [place] [address] [address] J[address] [place], [place] [id number] Referring Physician Cardiovascular Disease 06/25/22 documented as of this encounter
--- OUTSIDE RECORDS SUMMARY | 2025-08-03 18:04 | XMS_ITS | Encounter Summary ---
Author Organization [employer] Address [address] [place] [address] Care Team Providers Care Kerrick Kleaner Operator Name Role Phone Ara Milton MD Primary Care Provider Encounter Details Date Type Department Care Team (Late st Contact Info) Description 10/11/2005 Outpatient [facility] [address] [place] [address] Faisal Mendoza MD NO ADDRESS ON FILE [...] on filedocumented in this encounter Care Teams Kerrick Kleaner Operator Relationship Specialty Start Date End Date Ara Milton MD PCP - General Internal Medicine 03/03/20 documented as of this encounter
--- OUTSIDE RECORDS SUMMARY | 2025-08-03 18:04 | XMS_ITS | Encounter Summary ---
Author Organization [employer] Address [address] [place] [address] Care Team Providers Care Manager Ecommerce Name Role Phone Ara Milton MD Primary Care Provider Encounter Details Date Type Department Care Team (Latest Contact Info) Description 07/01/1998 Inpatient Historical HIS PATIENT IN A BED Price Rader MD NO ADDRESS ON FILE Moncho George MD [address] [place] [address] Other and unspecified cord entanglement, [...] Primary documented in this encounter Care Teams Manager Ecommerce Relationship Specialty Start Date End Date Ara Milton MD PCP - General Internal Medicine 03/03/20 documented as of this encounter
--- OUTSIDE RECORDS SUMMARY | 2025-08-03 18:04 | XMS_ITS | Encounter Summary ---
Author Organization [employer] Address [address] [place] [address] Care Team Providers Care Senior Back End Java Developer Name Role Phone Ara Milton MD Primary Care Provider Encounter Details Date Type Department Care Team (Latest Contact Info) Description 03/11/2000 Inpatient Historical HIS PATIENT IN A BED [facility], Joel Jarvis MD [address] [place] [address] Moncho George MD [address] [place] [address] Second-degree perineal laceration, with delivery [...] Primary documented in this encounter Care Teams Senior Back End Java Developer Relationship Specialty Start Date End Date Ara Milton MD PCP - General Internal Medicine 03/03/20 documented as of this encounter
--- OUTSIDE RECORDS SUMMARY | 2025-08-03 18:04 | XMS_ITS | Encounter Summary ---
Author Organization [employer] Address [address] [place] [address] Care Team Providers Care Senior Technical Project Manager Name Role Phone Ara Milton MD Primary Care Provider Encounter Details Date Type Department Care Team (Latest Contact Info) Description 02/12/2000 Outpatient Historical HIS OBSERVATION BED Moncho George MD [address] [facility] [address] [place] [phone] Threatened premature labor, antepartum(644.03) (Primary Dx) Social [...] antepartum documented in this encounter Care Teams Senior Technical Project Manager Relationship Specialty Start Date End Date Ara Milton MD PCP - General Internal Medicine 03/03/20 documented as of this encounter
--- OUTSIDE RECORDS SUMMARY | 2025-08-03 18:04 | XMS_ITS | Encounter Summary ---
Author Organization [facility] Address [address] [place] [address] Phone Care Team Providers Care Resistor Inspector Name Role Phone Ara Milton MD Primary Care Provider Moncho George MD Unavailable Alida Childers MD Unavailable [phone] Moncho Henderson MD Unavailable [phone] Hamzah Scott MD Primary Care Provider Encounter Details Date Type Department Care Team (Late st Contact Info) Description 08/24/2021 Orders Only [facility] [address] [place] [address] Scanning, Provider Social History Tobacco [...] on file Legal Sex Female 7:09 PM HEEL MOLDER Gender Identity Female 06/25/2022 2:42 PM HEEL MOLDER Sexual Orientation Straight 06/25/2022 2: 42 PM HEEL MOLDER 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 Not on file Not on file documented as of this encounter Plan of Treatment Not on file documented as of this encounter Procedures Procedure Name Priority Date/Time Associated Diagnosis Comments SCAN - RADIOLOGY/IMAGING 08/24/2021 4:11 PM HEEL MOLDER documented in this encounter Results * SCAN - RADIOLOGY/IMAGING (08/24/2021 4:11 PM HEEL MOLDER) Anatomical Region Laterality Modality Other us Provider Scanning Final Result documented in this encounter Visit Diagnoses Not on filedocumented in this encounter Additional Health Concerns Infection Onset Date Last Indicated Resolved Time COVID: Suspected 08/28/2021 08/28/2021 08/29/2021 2:46 AM HEEL MOLDER COVID: Suspected 03/29/2025 03/29/2025 03/29/2025 6:14 PM CDT COVID: Suspected 03/29/2025 03/29/2025 03/29/2025 9:41 PM CDT documented as of this encounter Care Teams Resistor Inspector Relationship Specialty Start Date End Date Ara Milton MD [address] [place] [address] PCP - General Internal Medicine 10/01/19 07/31/23 Hamzah Scott MD [address] [facility] [address] [place] [address] PCP - General Internal Medicine 08/01/23 Moncho George MD [address] [facility] [address] [place] [address] Consulting Physician Obstetrics and Gynecology 06/25/22 Alida Childers MD [address] [facility] [address] [place] [phone] Referring Physician Endocrinology Diabetes & Metabolism 06/25/22 Moncho Henderson MD [address] [facility] [address] [place] [address] Referring Physician Cardiovascular Disease 06/25/22 documented as of this encounter
--- OUTSIDE RECORDS SUMMARY | 2025-08-03 18:04 | XMS_ITS | Encounter Summary ---
Author Organization [facility] Address [address] [place] [address] Phone Care Team Providers Care Doper Name Role Phone Moncho George MD Unavailable [phone] Alida Childers MD Unavailable [phone] Moncho Henderson MD Unavailable [phone] Hamzah Scott MD Primary Care Provider Reason for Referral * Consultation (Urgent) - Pending Review Specialty Diagnoses / Procedures Referred By Joanna keene Referred To Contact Otolaryngology Diagnoses Tam's thyroiditis Alida Childers MD [address] [facility] [address] [place] [address] Phone: tel: fax: Soha Powell MD [address] [place] [address] Phone: tel: fax: Referral ID Status Reason Start Date Expiration Date Visits Requested Visits Authorized [id number] Pending Review Specialty Services Required 08/28/2026 1 1 Question Answer Please select the performing region: [facility] (All Locations) [167] Comments Sudden lump in the throat CLERK Encounter Details Date Type Department Care Team (Late st Contact Info) Description 07/29/2025 Orders Only [facility] Medicine Endocrinology Metabolism and Lipid [address] [facility] 13th [place] [address] [place] [address] Alida Childers MD [address] [facility] [address] [place] [address] Tam's thyroiditis (Primary Dx) Social History Tobacco Use Types [...] on file Legal Sex Female 7:09 PM FILE CLERK Gender Identity Female 06/25/2022 2:42 PM FILE CLERK Sexual Orientation Straight 06/25/2022 2: 42 PM FILE CLERK 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 Not on file Not on file documented as of this encounter Plan of Treatment Scheduled Referrals Name Type Priority Associated Diagnoses Orde r Schedule Ambulatory referral to ENT Outpatient Referral Urgent Tam's thyroiditis Expected: 07/30/2025, Expires: 07/29/2026 documented as of this encounter Visit Diagnoses Diagnosis Tam's thyroiditis- Primary Chronic lymphocytic thyroiditis documented in this encounter Care Teams Doper Relationship Specialty Start Date End Date Hamzah Scott MD [address] [place] [address] DR J[address] [place] [address] PCP - General Internal Medicine 08/01/23 Moncho George MD [address] [phone] Consulting Physician Obstetrics and Gynecology 06/25/22 Alida Childers MD [address] [phone] Referring Physician Endocrinology Diabetes & Metabolism 06/25/22 Moncho Henderson MD [address] [place] [address] [address] [place] [address] Referring Physician Cardiovascular Disease 06/25/22 documented as of this encounter
--- OUTSIDE RECORDS SUMMARY | 2025-08-03 18:04 | XMS_ITS | Clinical Summary ---
Author Organization [facility] Address [address] [facility] [place] [address] Care Team Providers Care Enrollment Processor Name Role Phone Mike Kay MD Unavailable [phone] Source Comments [facility],non-owned Affiliates and Associated Physician Practices is amultiple site organization consisting of ambulatory clinics and hospital sitesin [place], [place], [place] and [place]. This disclosure is being madepursuant to the Care Everywhere program and may not contain all information available regarding this patient. Last updated 18.[facility] Allergies Active Allergy Reactions Criticality Noted Date Comments Erythromycin Nausea and/or Vomiting 12/01/2016 Medications * Be aware that medications may not be up to date on this document. Alwaysverify current medications with the patient. 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
--- OUTSIDE RECORDS SUMMARY | 2025-08-03 18:04 | XMS_ITS | Encounter Summary ---
Author Organization [employer] Address [address] [place] [address] Care Team Providers Care Toolroom Clerk Name Role Phone Ara Milton MD Primary [...] Primary documented in this encounter Care Teams Toolroom Clerk Relationship Specialty Start Date End Date Ara Milton MD PCP - General Internal Medicine 03/03/20 documented as of this encounter
--- OUTSIDE RECORDS SUMMARY | 2025-08-03 18:04 | XMS_ITS | Clinical Summary ---
Author Organization [facility] [employer] [facility] Address [address] [place] [address] Care Team Providers Care Sales Demonstrator Name Role Phone Unavailable Primary Care Provider Unavailabl e Social History Tobacco Use Types Packs/Day Years Used Date Smoking Tobacco: Never Assessed Comments Unknown Sex and Gender Information Value Date Recorded Sex Assigned at Not on file Legal Sex Female 5:23 PM EST Gender Identity Not on file Sexual Orientation Not on file Plan of Treatment Not on file Medical Devices Not on file
--- OUTSIDE RECORDS SUMMARY | 2025-08-03 18:04 | XMS_ITS | Clinical Summary ---
Author Organization [facility] Address [address] [place] [address] Phone Care Team Providers Care Primary Education Professor Name Role Phone Ara Milton MD Primary [...] Encounters Date Type Department Care Team Description 07/27/2025 External Device Data ST[facility] ABSTRACTION Provider, Abstract 07/06/2025 External Device Data STL ABSTRACTION Provider, Abstract 06/16/2025 External Device Data STL ABSTRACTION Provider, Abstract 06/16/2025 External Device Data STL ABSTRACTION Provider, Abstract [...] DTAP/TDAP/TD VACCINES (1 - Tdap) 01/20/2022 01/20/20 INFLUENZA VACCINE (#1) 2025 , 06/11/2023, 06/13/2022, Additional history exists PAP SMEAR 11/06/2027 11/05/2024, 09/03/2023, 12/07/2021, Additional history exists CERVICAL CANCER SCREENING [...] PAP (11/05/2024 12:00 AM CDT) COMMENT (PAP): [facility] Comment: This order for age-based cervical cancer and STI screening follows ACOG guidelines(PB 168, 140, KDX546). See individual assays for performing site location. CLINICAL INFORMATION [facility] Comment:None given LAST MENSTRUAL PERIOD [facility] Comment:NONE GIVEN PREV PAP: [facility] Comment:NONE GIVEN PREV BX: [facility] Comment:NONE GIVEN SOURCE [facility] Comment:Endocervix ADEQUACY: [facility] Comment: Satisfactory for evaluation. Endocervical/transformation zone component present. Age and/or menstrual status not provided PAP INTERP [facility] Comment: Cytology Results: Negative for intraepithelial lesion or malignancy. COMMENT (PAP TEST) [facility] [place] Comment: This Pap test has been evaluated with computer assisted technology. SUPERVISOR GENERAL: [facility] Comment: TLS, CT(ASCP) CT Screening Location: [place] [address] EXPLANATORY NOTE [facility] [employer] [facility] [place] Comment: EXPLANATORY NOTE: The Pap is a [...] information. HPV E6/E7 Not Detected Not Detected [employer] [place] Comment: Methodology: Government Affairs Manager-Mediated Amplification This assay detects E6/E7 viral messenger RNA (mRNA) from 14 high-risk HPV types (16,18,31,33,35,39,45,51,52,56,58,59,66,68). Cervical sources are required for HPV testing. If a vaginal source from a patient who has had a total hysterectomy with removal of cervix was submitted, please contact the testing laboratory for alternative testing options. For additional information, please refer to http://education.CR2/faq/GVX489y2 (This link if provided for information/ educational purposes only.) Test Performed at: [facility] [address] [facility] [place] [address] Aidan Hudson MD SL Genital SWAB OF ENDOCERVIX / Unknown 11/05/2024 11/05/2024 11:41 PM CDT Moncho George MD PATHOLOGY/CYTOLOGY ORDERABLES Fi nal Result [facility] [phone] [employer] [address] [facility] [place] [address] * MAMMO SCRN BILAT 3D [place] W OR WO CAD (05/12/2020) Anatomical Region Laterality Modality Breast Bilateral Mammography Moncho George MD MAMMO ORDERABLES Final Result from Last 3 Months or Most Recently Relevant to Health Maintenance Insurance [employer] CHOICE POS II Care Teams Primary Education Professor Relationship Specialty Start Date End Date Ara Milton MD PCP - General Internal Medicine 03/03/20
== END 2025-08-03 16:13 | disposition home or self-care (01) ==
PROVIDERS: PCP Internal Medicine; Visit Provider Internal Medicine Endocrinology, Diabetes & Metabolism
DX: R22.1 Localized swelling, mass and lump, neck (principal); E06.3 Autoimmune thyroiditis
CPT/HCPCS: 76536